=== PATIENT | female | born 1950 | race Caucasian/White ===

== ENCOUNTER 2016-05-21 13:38 | Observation (INO) | payer OTHER, MEDICARE ==
[~2016-05-21] VITALS: Ht 157.5 cm; Wt 85.0 kg
[~2016-05-21 13:38] MED LIST: ACET325T51 PO; ASPI-973 PO; CALC600T12 PO; CARV12.52 PO; CITA20TA11 PO; CYAN500 PO; ESTR1TAB24 PO; LISI-571 PO; OMEP20CA11 PO
[2016-05-21 13:40] VITALS: BP 114/53; PULSE 95; RESP 20; O2SAT 94
--- NOTE | 2016-05-21 15:28 | ED.REPORT ---
HPI-Chest Pain 40 and Over Date of Service May 21, 2016 ED Provider: Dr. Sarkar 66 year old female with a hx of HTN, broken heart syndrome, CAD S/p angioplasty and former smoker who presents to the ED due to SOB that has been worsening for the last 3 days. The dyspnea is worse with any exertion. For the last few days she has been unable to sleep in bed. She also complains of back pain, cough (8 days), and diarrhea. Pt was seen 1 year ago for broken heart syndrome and states that some symptoms are similar. Pt denies worsening edema, CP, fever, chills, vomiting and urinary symptoms. Nursing Notes Stated Complaint: SOB Chief Complaint: Chest Pain Nursing Notes Reviewed: Yes Allergies: Coded Allergies: Macrolide Antibiotics (Verified Allergy, Mild, 03/15/09) Penicillins (Verified Allergy, Mild, 03/15/09) erythromycin ethylsuccinate (Verified Allergy, Mild, 03/15/09) tetracycline (Verified Allergy, Mild, 03/15/09) aspirin (Verified Allergy, Unknown, 05/21/16) Scheduled Aspirin (Aspirin) 81 Mg Tabec 81 MG PO DAILY Calcium Carbonate (Calcium) 600 Mg Tablet 600 MG PO DAILY Carvedilol (Carvedilol) 12.5 Mg Tablet 12.5 MG PO BIDWM Citalopram (Citalopram) 20 Mg Tablet 1 TABLET PO HS Cyanocobalamin (Vitamin B12) 500 Mcg Tablet Unknown Dose PO MORNING Estradiol (Estradiol) 1 Mg Tablet 1 MG PO DAILY Lisinopril (Lisinopril) 5 Mg Tablet 1 TABLET PO QPM Lisinopril (Lisinopril) 5 Mg Tablet 5 MG PO BID Omeprazole (Omeprazole) 20 Mg Capsule. Unknown Dose PO BID Scheduled PRN Acetaminophen (Acetaminophen) 325 Mg Tablet 325 MG PO Q4H PRN PRN For Pain General Time Seen by MD: 15:28 Chief Complaint Shortness of breath Hx Obtained From: Patient, Spouse Arrived By: Walk-in Sudden in Onset?: No Onset Occurred: 3 days ago Symptom Duration: Since onset Location: : Back Quality: Painful Severity: Current: Mild Associated with: Reports: Cough, non-productive, Denies: Fever Exacerbated by: Exertion, mild, Lying down Risk Factors )( CAD Risk Stratification Risk factors reviewed )( TAD Risk Stratification Risk factors reviewed )( PE Risk Stratification Risk factors reviewed Past Medical History Past Medical History "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 Squires Reports: Coronary artery disease, GERD, Hypertension Reports: Depression, Urinary tract infection Past Surgical History abd hernia with mesh and bilateral eye surgery Reports: Angioplasty, Hysterectomy Smoking History Former Smoker Social History Alcohol Use: "Social" Drug Use: Denies drug use Other Social History: Occupation no work or school Review of Systems Basic Review of Systems Eyes: Vision NL ENT: Hearing NL : No dysuria, No frequency Constitutional: Denies: Chills, Fever Respiratory: Reports: Dyspnea on exertion, Non-productive cough, Shortness of breath Cardiovascular: Reports: Dyspnea on exertion, Edema (chronic, nothing worsening ), Denies: Chest pain GI: Reports: Diarrhea, Denies: Abdominal pain, Nausea, Vomiting Musculoskeletal: Reports: Back pain Skin: Denies Diaphoresis, Denies Rash Complete sys rev & neg: except as marked. Physical Exam Initial Vital Signs Vital Signs (First) Date Time Temp Pulse Resp B/P Pulse Ox O2 Delivery O2 Flow Rate FiO2 05/21/16 13:40 37.1 95 20 114/53 94 Room Air Initial VS: Reviewed, Vital signs normal Head / Eyes: Atraumatic, Normocephalic, PERRL ENT: Mucous membranes moist, Conjunctiva normal, No scleral icterus Neck: Supple, Full range of motion Extremities: Vascular intact, Neuro intact, No swelling (No edema) Skin: Warm, Dry, No cyanosis Neurologic: Alert, Oriented, Nonfocal Psychiatric: Mood/affect normal, Behavior normal, Normal thought content General/Constitutional: Awake, Alert Respiratory / Chest: Breath sounds NL, Breath sounds = bilat, No respiratory distress, No rales, No rhonchi, No wheezing, No stridor, No chest tenderness Cardiovascular: Heart rate NL, Regular rhythm, Heart sounds NL, No murmurs, Peripheral circulation NL, Pulses = bilaterally Abdomen: Soft, Non-tender Interpretation & Diagnostics Lab Results Interpretation Result Diagram: 05/21/16 1600 05/21/16 1600 Test 05/21/16 16:00 05/21/16 17:06 05/21/16 17:45 05/21/16 21:45 White Blood Count 14.5th/mm3 (3.8-10.1) Red Blood Count 3.36mil/mm3 (3.90-5.20) Hemoglobin 8.5g/dL (12.0-15.6) Hematocrit 29.5% (35.0-46.0) Mean Corpuscular Volume 87.8fL (81-100) Mean Corpuscular Hemoglobin 25.3pg (27.0-35.0) Mean Corpuscular Hemoglobin Concent 28.8% (32.0-37.0) Red Cell Distribution Width 14.5% (12.3-15.4) Platelet Count 390bil/L (150-400) Neutrophils (%) (Auto) 64.1% (40-74) Lymphocytes (%) (Auto) 23.5% (14-46) Monocytes (%) (Auto) 8.5% (4-12) Eosinophils (%) (Auto) 3.5% (0-5) Basophils (%) (Auto) 0.2% (0-3) Sodium Level 139mEq/L (134-144) Potassium Level 4.4mEq/L (3.5-5.2) Chloride Level 102mEq/L (97-108) Carbon Dioxide Level 26mmol/L (18-29) Blood Urea Nitrogen 13mg/dL (8-27) Creatinine 0.60mg/dL (0.57-1.00) Estimat Glomerular Filtration Rate 142mL/min (>59) Glucose Level 93mg/dL (60-99) Calcium Level 8.7mg/dL (8.5-10.1) Magnesium Level 1.8mg/dL (1.6-2.6) Total Bilirubin 0.2mg/dL (0.0-1.2) Aspartate Amino Transf (AST/SGOT) 14U/L (0-50) Alanine Aminotransferase (ALT/SGPT) 11U/L (0-32) Alkaline Phosphatase 88U/L (25-165) Troponin T < 0.010ug/L (0.0-0.011) Pro-B-Type Natriuretic Peptide 996.0pg/mL (0-301) Total Protein 6.8g/dL (6.4-8.4) Albumin 3.1g/dL (3.4-5.0) Urine Color Straw (YELLOW) Urine Appearance Clear (CLEAR,HAZY) Urine pH 6.0 (5.0-8.0) Urine Specific [place] 1.010 (1.003-1.035) Urine Protein Tracemg/dL (NEG,TRACE) Urine Glucose (UA) Negativemg/dL (NEGATIVE) Urine Ketones Negativemg/dL (NEGATIVE) Urine Occult Blood Negative (NEGATIVE) Urine Nitrite Negative (NEGATIVE) Urine Bilirubin Negative (NEGATIVE) Urine Urobilinogen Normalmg/dL (NORMAL) Urine Leukocyte Esterase Negative (NEGATIVE) Urine RBC 0-2/hpf (0-2) Urine WBC 0-5/hpf (0-5) Urine Epithelial Cells None/hpf (NONE-MOD) Urine Crystals Uric acid crystals (NONE Urine Bacteria None/hpf (NONE-FEW) Urine Hyaline Casts None/lpf (NONE) Urine Granular Casts None seen (NONE SEEN) Urine Waxy Casts None seen (NONE SEEN) Urine Red Blood Cell Casts None seen (NONE SEEN) Urine White Blood Cell Casts None seen (NONE SEEN) Urine Mucus None seen (None Seen) Urine Trichomonas None seen (NONE SEEN) Urine Yeast None (NONE SEEN) Urinalysis Comment None Urine Culture Reflexed Not indicated Reticulocyte Count,Calculated 3.1% (0.6-2.6) Iron Level 29ug/dL (35-150) Total Iron Binding Capacity 479ug/dL (250-450) Percent Iron Saturation 6%sat (15-50) Unsaturated Iron Binding 450.1ug/dL Ferritin 31ng/mL (13-150) Hold Purple Top Tube Received (Received) Hold Blue Top Tube Received (Received) Hold [place] Top Tube Received (Received) Hold Reyes Top Tube Received (Received) General Lab Results Interp 1: Labs reviewed ECG Interpretation ECG Interpretation: Increased QTc, no acute ST or T wave changes. Prior ST and T wave changes on prior ECG 04/16/15 have resolved Time: 14:18 Interpreted by: ED physician Abnormal Rate: 100 (105) Rhythm / Conduction: Tachycardia ABG Interpretation ABG Interpretation: pH ____7.379 - 7.350 7.450 pCO2 ___48.9__ -mmHg 35.0 45.0 pO2 ___59.0__ -mmHg 69.0 116 HCO3- ___28.2__ -mmol/L 22.0 26.0 X-Ray Chest Interpretation Chest Xray Interpretation: IMPRESSION: No acute cardiopulmonary disease. Dictated by: Marino Casey M.D. on 05/21/2016 at 15:30 View: Portable, 1 view Interpretation / Wet Read by: Interpret - Radiologist CT Chest Interpretation Impression: No pulmonary emboli identified. No aortic dissection evident. Findings suggest mild pulmonary edema associated with small pleural effusions. Hepatomegaly with fatty liver infiltration. Study type: CT pulm angiogram Interpretation / Wet Read by: Interpret - Radiologist Re-Eval/Medical Decision Med Decision/Clinical Course The patient's predominant complaint was significant dyspnea on exertion. Evaluation here revealed anemia which was thought to be a cause of her dyspnea. She is treated with 1 unit packed red cells and it did resolve her dyspnea however the patient was noted periodically be hypoxic. Given the hypoxia showed a CT angiogram which was negative for pulmonary embolus and pneumonia. The patient will need to be admitted due to the hypoxia. She had a blood gas obtained to confirm that she is truly hypoxic and it was consistent with hypoxia. The patient does have a remote history of smoking was given a breathing treatment with no significant change. Time of Eval: 17:11 Re-Evaluation/Progress Note: Pt slightly anemic. Pt understands and agrees with plan for rectal exam. Stool negative for blood. Time of Eval: 17:47 Patient Status: Condition improved Re-Evaluation/Progress Note: pt rechecked. Time of Eval: 20:13 Re-Evaluation/Progress Note: Blood is transfusing. Pt resting awake and alert in bed. Time of Eval: 20:52 Re-Evaluation/Progress Note: Pt is now hypoxic. Recommended admission. Pt understands and agrees with plan. All questions addressed. Consultation #1: Referral / Consult Name: Simone De La Rosa MD Consulted With: Bridge Instructor Call Returned at: 17:20 Note: Standard anemia studies. Will f/u. Agrees with plan for transfusing 1 unit. Consultation #2: Referral / Consult Name: Radha Parkinson MD Consulted With: Hospitalist Call Returned at: 23:43 Rn Security: Will see patient, Agrees with eval, Agrees with plan, Accepts admit Counseled Regarding: Diagnosis, Lab results, Need for admission Discharge & Departure Primary Impression: Hypoxia Additional Impression: Anemia Anemia type: unspecified type Qualified Code: D64.9 - Anemia, unspecified Disposition: ADMITTED TO HOSPITAL Discharge Condition All VS Reviewed: Yes Referrals: NOPCP (PCP) Scribe Attestation Portions of this note were transcribed by Janie Haq. I, (Dr. Sarkar) personally performed the history, physical exam and medical decision-making; I reviewed and confirmed the accuracy of the information in the transcribed note. Signed by: Janie Haq. 05/21/2016, 2342 Elvia Sarkar MD May 21, 2016 15:28 Janie Haq May 21, 2016 15:51
--- NOTE | 2016-05-21 15:32 | DRSVH ---
PROCEDURE: X-RAY CHEST ONE VIEW, PORTABLE ([id number]) INDICATIONS: 66 year-old female with chest pressure for 10 days. TECHNIQUE: One view of the chest was acquired. COMPARISON: [facility], CR, XR CHEST 2VW, 03/17/2016, 13:52. [facility], CR, XR CHEST 2VW, 05/23/2015, 11:03. [facility], CR, XR CHEST 1VW (PORTABLE), 04/20/2015, 3:13. FINDINGS: Surgical changes and devices: None. Lungs and pleura: No pleural effusions or pneumothorax. Lungs are clear. Mediastinum: Mediastinal contours appear normal. Heart size is normal. There is aortic atheroscler osis. Bones and chest wall: No suspicious bony lesions. Overlying soft tissues appear unremarkable. IMPRESSION: No acute cardiopulmonary disease. Dictated by: Marino Casey M.D. on 05/21/2016 at 15:30 Approved by: Marino Casey M.D. on 05/21/2016 at 15:30
[2016-05-21] MEDS ORDERED: Albuterol-Ipratropium 3 mL Inhalation Solution NEB ONE (15:55)
[2016-05-21 16:02] VITALS: PULSE 85; RESP 16; O2SAT 95
[2016-05-21 16:03] LABS: BASOPHILS % (AUTO) 0.2 % (0-3); EOSINOPHILS % (AUTO) 3.5 % (0-5); MONOCYTES % (AUTO) 8.5 % (4-12); Mean Corpuscular Hemoglobin 25.3 pg (27.0-35.0); Mean Corpuscular Volume 87.8 fL (81-100); NEUTROPHILS % (AUTO) 64.1 % (40-74); Platelet Count 390 bil/L (150-400)
[2016-05-21 16:47] LABS: Magnesium 1.8 mg/dL (1.6-2.6)
[2016-05-21 16:51] LABS: TROPONIN T < 0.010 ug/L (0.0-0.011)
[2016-05-21 17:35] LABS: APPEARANCE,URINE CLEAR (CLEAR,HAZY); COLOR,URINE STRAW (YELLOW); OCCULT BLOOD,URINE NEGATIVE (NEGATIVE); UROBILINOGEN,URINE NORMAL (NORMAL)
[2016-05-21 18:30] LABS: Unsaturated Iron Binding 450.1 ug/dL
[2016-05-21 18:44] VITALS: BP 149/55; PULSE 88; RESP 14; O2SAT 96
[2016-05-21 22:56] VITALS: BP 131/44; PULSE 87; RESP 13
[2016-05-21] MEDS ORDERED: Albuterol 2.5 mg/3 mL Inhalation Solution NEB ONE (23:15)
--- NOTE | 2016-05-21 23:22 | ABG ---
DateTimeAnalyzed 23:17:00 -_ pH ____7.379 - 7.350 7.450 pCO2 ___48.9__ -mmHg 35.0 45.0 pO2 ___59.0__ -mmHg 69.0 116 HCO3- ___28.2__ -mmol/L 22.0 26.0 ABE ____3.1__ -mmol/L -2.0 2.0 tHb ____9.3__ -g/dL O2Hb ___86.8__ -% COHb ____1.8__ -% MetHb ____1.3__ -% sO2 ___89.6__ -% FIO2 ___21.0__ -% Drawn By MM - Date/Time Notified____ 23:21:00 -_ Notified By MM - Notified Whom _DR KATJA - B 763 -mmHg tO2 ___11.5__ -Vol% OrderingPhysicianInitials JL - Deric test _Positive -
[2016-05-22] VITALS (9 sets, daily range): BP systolic 108–151; BP diastolic 49–80; PULSE 82–90; RESP 18–20; O2SAT 94–98
[2016-05-22] MEDS ORDERED: Lactated Ringer's 1,000 ML IV SCH (00:32)
[2016-05-22] MEDS ORDERED: Polyethylene Glycol (PEG) 17 Gm Powder PO PRN (00:35)
[2016-05-22] MEDS ORDERED: Ondansetron 2 mg/mL 2 mL Inj IVPUSH PRN ×2 (00:35)
[2016-05-22] MEDS ORDERED: Alum-Mag Hydrox-Simeth 30 mL Suspension PO PRN ×2 (00:35)
[2016-05-22 01:21] LABS: BASOPHILS % (AUTO) 0.3 % (0-3); EOSINOPHILS % (AUTO) 4.4 % (0-5); MONOCYTES % (AUTO) 8.4 % (4-12); Mean Corpuscular Hemoglobin 26.1 pg (27.0-35.0); Mean Corpuscular Volume 87.4 fL (81-100); NEUTROPHILS % (AUTO) 60.1 % (40-74); Platelet Count 384 bil/L (150-400)
[2016-05-22] MEDS: 0.9% Sodium Chloride 1,000 ML IV SCH ×2 (01:30→10:35)
[2016-05-22] MEDS ORDERED: CARV6.252 PO (01:47)
[2016-05-22 01:51] LABS: INR 0.92 ratio
--- NOTE | 2016-05-22 02:12 | PCM.HPMED ---
Subjective Date of Service May 22, 2016 Primary Provider: Admitting Physician: Radha Parkinson MD Primary Care Physician: Nopcp Attending Physician: Radha Parkinson MD Admit Status: From the Emergency Department, 23-Hour Observation, [facility] Telemetry Chief Complaint: Increasing shortness of breath over the past few days History of Present Illness: This is a 66-year-old female who has a history of hypertension history a year ago of Takotsubo cardiomyopathy who presents with increasing shortness of breath over the past few days. He notes it is worse with exertion. She denies any chest pain. Denies any lower extremity edema. Denies any fevers or chills. She does have a history of gastroesophageal reflux for which she uses omeprazole twice a day. She denies any alteration in bowel movements but does have more flatulence along with burping recently. Her evaluation in the emergency room includes a white count of 14.5 with 64% polys 24% lymphs. Troponin less than 0.010. CTA of chest was done and reveals no pulmonary emboli identified. No aortic dissection evidence of findings suggesting mild pulmonary edema associated with small pleural effusions noted hepatomegaly with fatty liver infiltration. She was also found to be anemic and was transfused blood per ER M.D. Information Technology Officer Dr. Simone De La Rosa was also consulted. She was heme-negative on rectal exam per ER M.D. Of note her percent iron saturation was 6%. Reticulocyte count was 3.1%. Her hemoglobin was 8.5 and hematocrit was 29.5 with an MCV of 87.8. Platelets were 398. Review of Systems: All other review of systems were reviewed and were negative except for as in history of present illness. Allergies Coded Allergies: Macrolide Antibiotics (Verified Allergy, Mild, 03/15/09) Penicillins (Verified Allergy, Mild, 03/15/09) erythromycin ethylsuccinate (Verified Allergy, Mild, 03/15/09) tetracycline (Verified Allergy, Mild, 03/15/09) aspirin (Verified Allergy, Unknown, 05/21/16) Home Medications Scheduled Aspirin (Aspirin) 81 Mg Tabec 81 MG PO DAILY Calcium Carbonate (Calcium) 600 Mg Tablet 600 MG PO DAILY Carvedilol (Carvedilol) 12.5 Mg Tablet 12.5 MG PO BIDWM Citalopram (Citalopram) 20 Mg Tablet 1 TABLET PO HS Cyanocobalamin (Vitamin B12) 500 Mcg Tablet Unknown Dose PO MORNING Estradiol (Estradiol) 1 Mg Tablet 1 MG PO DAILY Lisinopril (Lisinopril) 5 Mg Tablet 1 TABLET PO QPM Lisinopril (Lisinopril) 5 Mg Tablet 5 MG PO BID Omeprazole (Omeprazole) 20 Mg Capsule.dr Unknown Dose PO BID Scheduled PRN Acetaminophen (Acetaminophen) 325 Mg Tablet 325 MG PO Q4H PRN PRN For Pain PMH History of chronic recurrent major depressive disorder History of stress induced cardiomyopathy Hyperlipidemia Essential hypertension History of GERD Apical ballooning syndrome Hyperglycemia Benign essential hypertension History of smoking Surgical History Past Surgical History abd hernia with mesh and bilateral eye surgery Reports: Angioplasty, Hysterectomy Social History Hx Alcohol Use: No Hx Substance Use: No Hx Tobacco Use: No Smoking Status: Former Smoker Living Arrangement: with Family Exam Vital Signs Vital Sign - Last Date Time Temp Pulse Resp B/P Pulse Ox O2 Delivery O2 Flow Rate FiO2 05/22/16 01:37 36.5 87 18 151/73 97 Nasal Cannula 2.00 Intake and Output 05/21/16 05/21/16 05/22/16 Cumulative From/Thru 15:00 23:00 07:00 05/21/16 13:40 - 05/22/16 01:37 Intake Total 350 ml 350 ml Balance 350 ml 350 ml Intake IV Total 350 ml 350 ml Exam Constitutional: Middle-aged woman in no acute distress Head: Normocephalic atraumatic Eyes: PERRLA DC EOMI Mouth: No lesions Neck: Carotids 2+ over 4 without bruits Chest clear to auscultation Cor: Regular rate and rhythm S1-S2 without murmur Abdomen soft, nontender, bowel sounds present Extremities: No pedal edema Psych: Mood and affect are appropriate Skin: No rashes Neuro: Alert and oriented 3, motor and sensory are intact bilaterally Lab and Diagnostics Labs Laboratory Tests 72 Hours Test 05/21/16 16:00 05/21/16 17:06 05/21/16 17:45 05/21/16 21:45 White Blood Count 14.5th/mm3 (3.8-10.1) Red Blood Count 3.36mil/mm3 (3.90-5.20) Hemoglobin 8.5g/dL (12.0-15.6) Hematocrit 29.5% (35.0-46.0) Mean Corpuscular Volume 87.8fL (81-100) Mean Corpuscular Hemoglobin 25.3pg (27.0-35.0) Mean Corpuscular Hemoglobin Concent 28.8% (32.0-37.0) Red Cell Distribution Width 14.5% (12.3-15.4) Platelet Count 390bil/L (150-400) Neutrophils (%) (Auto) 64.1% (40-74) Lymphocytes (%) (Auto) 23.5% (14-46) Monocytes (%) (Auto) 8.5% (4-12) Eosinophils (%) (Auto) 3.5% (0-5) Basophils (%) (Auto) 0.2% (0-3) Sodium Level 139mEq/L (134-144) Potassium Level 4.4mEq/L (3.5-5.2) Chloride Level 102mEq/L (97-108) Carbon Dioxide Level 26mmol/L (18-29) Blood Urea Nitrogen 13mg/dL (8-27) Creatinine 0.60mg/dL (0.57-1.00) Estimat Glomerular Filtration Rate 142mL/min (>59) Glucose Level 93mg/dL (60-99) Calcium Level 8.7mg/dL (8.5-10.1) Magnesium Level 1.8mg/dL (1.6-2.6) Total Bilirubin 0.2mg/dL (0.0-1.2) Aspartate Amino Transf (AST/SGOT) 14U/L (0-50) Alanine Aminotransferase (ALT/SGPT) 11U/L (0-32) Alkaline Phosphatase 88U/L (25-165) Troponin T < 0.010ug/L (0.0-0.011) Pro-B-Type Natriuretic Peptide 996.0pg/mL (0-301) Total Protein 6.8g/dL (6.4-8.4) Albumin 3.1g/dL (3.4-5.0) Urine Color Straw (YELLOW) Urine Appearance Clear (CLEAR,HAZY) Urine pH 6.0 (5.0-8.0) Urine Specific [place] 1.010 (1.003-1.035) Urine Protein Tracemg/dL (NEG,TRACE) Urine Glucose (UA) Negativemg/dL (NEGATIVE) Urine Ketones Negativemg/dL (NEGATIVE) Urine Occult Blood Negative (NEGATIVE) Urine Nitrite Negative (NEGATIVE) Urine Bilirubin Negative (NEGATIVE) Urine Urobilinogen Normalmg/dL (NORMAL) Urine Leukocyte Esterase Negative (NEGATIVE) Urine RBC 0-2/hpf (0-2) Urine WBC 0-5/hpf (0-5) Urine Epithelial Cells None/hpf (NONE-MOD) Urine Crystals Uric acid crystals (NONE Urine Bacteria None/hpf (NONE-FEW) Urine Hyaline Casts None/lpf (NONE) Urine Granular Casts None seen (NONE SEEN) Urine Waxy Casts None seen (NONE SEEN) Urine Red Blood Cell Casts None seen (NONE SEEN) Urine White Blood Cell Casts None seen (NONE SEEN) Urine Mucus None seen (None Seen) Urine Trichomonas None seen (NONE SEEN) Urine Yeast None (NONE SEEN) Urinalysis Comment None Urine Culture Reflexed Not indicated Reticulocyte Count,Calculated 3.1% (0.6-2.6) Iron Level 29ug/dL (35-150) Total Iron Binding Capacity 479ug/dL (250-450) Percent Iron Saturation 6%sat (15-50) Unsaturated Iron Binding 450.1ug/dL Ferritin 31ng/mL (13-150) Hold Purple Top Tube Received (Received) Hold Blue Top Tube Received (Received) Hold [place] Top Tube Received (Received) Hold Reyes Top Tube Received (Received) Test 05/22/16 01:10 White Blood Count 12.4th/mm3 (3.8-10.1) Red Blood Count 3.64mil/mm3 (3.90-5.20) Hemoglobin 9.5g/dL (12.0-15.6) Hematocrit 31.8% (35.0-46.0) Mean Corpuscular Volume 87.4fL (81-100) Mean Corpuscular Hemoglobin 26.1pg (27.0-35.0) Mean Corpuscular Hemoglobin Concent 29.9% (32.0-37.0) Red Cell Distribution Width 14.8% (12.3-15.4) Platelet Count 384bil/L (150-400) Neutrophils (%) (Auto) 60.1% (40-74) Lymphocytes (%) (Auto) 26.6% (14-46) Monocytes (%) (Auto) 8.4% (4-12) Eosinophils (%) (Auto) 4.4% (0-5) Basophils (%) (Auto) 0.3% (0-3) Activated Partial Thromboplast Time 25.4sec (22.8-33.0) Result Diagram: 05/22/16 0110 05/21/16 1600 X-Rays, CTs and MRIs Patient Name: CATA CAMERON MR#: [id number] Location: [facility] [place] Ordering Phys: [facility], ED Date of Service: 05/21/16 1449 PROCEDURE: X-RAY CHEST ONE VIEW, PORTABLE ([id number]) INDICATIONS: 66 year-old female with chest pressure for 10 days. TECHNIQUE: One view of the chest was acquired. COMPARISON: [facility], CR, XR CHEST 2VW, 03/17/2016, 13:52. [facility], CR, XR CHEST 2VW, 05/23/2015, 11:03. [facility], CR, XR CHEST 1VW (PORTABLE), 04/20/2015, 3:13. FINDINGS: Surgical changes and devices: None. Lungs and pleura: No pleural effusions or pneumothorax. Lungs are clear. Mediastinum: Mediastinal contours appear normal. Heart size is normal. There is aortic atherosclerosis. Bones and chest wall: No suspicious bony lesions. Overlying soft tissues appear unremarkable. IMPRESSION: No acute cardiopulmonary disease. Dictated by: Marino Casey M.D. on 05/21/2016 at 15:30 Approved by: Marino Casey M.D. on 05/21/2016 at 15:30 12-lead ECG Sinus at a rate of 105 QTC is 488 poor R-wave progression across precordium Additional Diagnostics: [facility] CATA CAMERON 1950 Female DateTimeAnalyzed 23:17:00 -_ pH ____7.379 - 7.350 7.450 pCO2 ___48.9__ -mmHg 35.0 45.0 pO2 ___59.0__ -mmHg 69.0 116 HCO3- ___28.2__ -mmol/L 22.0 26.0 ABE ____3.1__ -mmol/L -2.0 2.0 tHb ____9.3__ -g/dL O2Hb ___86.8__ -% COHb ____1.8__ -% MetHb ____1.3__ -% sO2 ___89.6__ -% FIO2 ___21.0__ -% Drawn By MM - Date/Time Notified____ 23:21:00 -_ Notified By MM - Notified Whom _DR KATJA - B 763 -mmHg tO2 ___11.5__ -Vol% OrderingPhysicianInitials JL - Deric test _Positive - Assessment & Plan # Dyspnea on exertion with resting hypoxia, acute, present on admission Check echocardiogram Serial troponins CTA revealed no pulmonary emboli Check stress pharmacological nuclear test # Chronic recurrent major depressive disorder, chronic, present on admission continue current medication regimen #Benign essential hypertension, chronic, present on admission Continue current medication regimen # DVT prophylaxis Placed on subcutaneous prophylactic heparin # CODE STATUS Patient is full code Pain Evaluation: Adequate Pain Control GI Prophylaxis: Proton Pump Inhibitor VTE Prophylaxis: Sub-Q Heparin (Unfractionated) VTE Mechanical Devices: Intermittant Pneumatic CD Resuscitation Status: CPR: Attempt Resuscitation Time spent 60 minutes Rdaha Parkinson MD May 22, 2016 02:12
[2016-05-22 02:13] LABS: Magnesium 1.9 mg/dL (1.6-2.6)
[2016-05-22 02:14] LABS: TROPONIN T 0.01 ug/L (0.0-0.011)
[2016-05-22 03:15] LABS: APPEARANCE,URINE HAZY (CLEAR,HAZY); COLOR,URINE STRAW (YELLOW); OCCULT BLOOD,URINE TRACE (NEGATIVE); PH,URINE 6.5 (5.0-8.0); UROBILINOGEN,URINE NORMAL (NORMAL)
--- NOTE | 2016-05-22 03:31 | NUR ---
Admit to 1009 Arrived from ED at 0115, ambulated to bed with steady gait. Pt reports recent fall unrelated to dizziness or SOB. IV fluids infusing, tele monitoring and cont pulse ox with 3 L O2 via NC. NPO for stress test in am. Received RBCs in ED. Oriented to room, call light, hospital routines, hourly rounding ongoing.
[2016-05-22 06:08] LABS: Vitamin B12 >1999 pg/mL (211-946)
--- NOTE | 2016-05-22 08:00 | NUR ---
TRANSFER TO NUCLEAR [facility] Patient is saline locked. Transferred to nuclear [employer] for her stress test. She denies pain/nausea/SOB at this time.
[2016-05-22] MEDS ORDERED: Influenza (Adult) Vaccine 0.5 mL Syringe IM ONE (08:30)
--- NOTE | 2016-05-22 09:04 | DRSVH ---
PROCEDURE: CT ANGIO CHEST PULMONARY EMBOLISM ([id number]) INDICATIONS: hypoxia TECHNIQUE: After the administration of intravenous contrast, 2 mm thick sections acquired from the pulmonary api jaye to the posterior costophrenic angles. 3-dimensional maximum intensity projection (MIP) coronal a nd sagittal reformats were then acquired through the thorax. For radiation dose reduction, the follo wing was used: automated exposure control, adjustment of mA and/or kV according to patient size. COMPARISON: [facility], CT, CT CHEST WO CON, 06/08/2015, 12:46. [facility], CT, CHEST ANGIO-PE, 07/03/2009, 17:09. [facility], CT, CT ANGIO CHEST PE, 04/14/2015, 17: 12. FINDINGS: Image quality: Excellent. Pulmonary arteries: Pulmonary arteries are normal in size, and demonstrate no intraluminal filling d efects to suggest central pulmonary embolism. Lungs and pleura: There are small bilateral pleural effusions with mild compressive atelectasis. The re is mild septal thickening with bilateral ground glass opacities consistent with pulmonary edema. B ilateral scattered small subpleural ground-glass nodules on the order of 3-4 mm are demonstrated like ly representing mild infectious or inflammatory process. Central and peripheral airways are patent. Mediastinum: Heart size is normal, without pericardial effusion. There are a few mildly enlarged me diastinal and hilar lymph nodes including confluent subcarinal nodes measuring up to approximately 1. 1 cm in short axis. These are slightly increased compared to the prior studies. Thoracic aorta is n ormal in caliber and enhancement. Esophagus is normal in caliber, without hiatal hernia. Bones and chest wall: No suspicious bony lesions. Ribs and thoracic spine appear intact throughout. Thyroid gland is partially visualized and demonstrates no discrete nodules. No axillary or supracl avicular adenopathy. Abdomen: Visualized upper abdomen redemonstrates 2 clustered peripherally calcified ovoid hypoattenu ating nodules in the spleen measuring up to approximately 1.2 cm and 1 cm. These are similar in size compared to the prior studies with increased peripheral calcification demonstrated in the larger les ion over time. IMPRESSION: 1. No evidence of central pulmonary embolism. 2. Septal thickening and groundglass opacities consistent with pulmonary edema which may be due to c ardiogenic or noncardiogenic etiologies. 3. Small bilateral pleural effusions. 4. Scattered small subpleural groundglass nodules likely represent a mild infectious or inflammatory process. 5. Mildly enlarged mediastinal and hilar lymph nodes are progressively slightly increased in size co mpared to the prior studies. Findings are nonspecific but likely reactive. Recommend attention on f ollowup. 6. 2 peripherally calcified lesions redemonstrated in the spleen are nonspecific but likely related to sequela of prior infection. Dictated by: Zeke Zelaya M.D. on 05/22/2016 at 9:02 Approved by: Zeke Zelaya M.D. on 05/22/2016 at 9:02
[2016-05-22] MEDS: Famotidine Inj 20 MG in IV Premix 1 EACH IV SCH ×2 (10:55→19:47)
--- NOTE | 2016-05-22 11:08 | NUR ---
BACK FROM NUCLEAR MED Patient is on O2 at 2 LPM via NC. Patient is placed back on a continuous PO2. Restarted IVF. Patient denies pain/nausea/SOB. Tele is back. Patient is on sinus rhythm; HR-80's. Per nuclear med patient can restart her diet. Family is at the bedside. Reoriented to room, call light and bathroom.
--- NOTE | 2016-05-22 12:01 | DRSVH ---
PROCEDURE: 1 DAY PHARMACOLOGICAL STRESS TEST INDICATIONS: THE PATIENT IS A 66-YEAR-OLD FEMALE ADMITTED WITH SYMPTOMS OF EXERTIONAL DYSPNEA, HYPOX IA AND ANEMIA. NUCLEAR CARDIAC STRESS STUDY IS PERFORMED TO EXCLUDE UNDERLYING ISCHEMIC HEART DISEAS E. COMPARISON: None. FINDINGS: Stress test: For unclear reasons this patient underwent a pharmacologic stress study. O2 saturation on room air 88% and with 2 L nasal cannula 97% at the time of the study. The patient received a sta ndard Lexiscan injection which was associated with a normal pharmacologic response and symptoms of dy spnea without chest pain or EKG changes of ischemia. The patient received 9.92 millicuries of Technetium-99m tetrofosmin for the resting portion of the ex amination and 32.7 millicuries following the Lexiscan pharmacologic stress study. Prone imaging was acquired. Raw data: Raw data imaging shows normal heart size with no evidence of transient ischemic dilatation . There is moderate breast tissue shadow identified. No significant source of artifact or interfere nce identified. Quantitative gated SPECT imaging: Gated images show a normal end-diastolic volume of 78 cc with an e jection fraction estimated at 73%. No regional wall motion abnormalities are identified. Quantitative perfusion SPECT imaging: Myocardial perfusion imaging shows a normal distribution of ra dioisotope throughout the myocardium both with stress and rest. There is a small focal distal apical region of hypoperfusion on stress and rest imaging which resolves with prone imaging and is consiste nt with breast tissue attenuation. I do not see any perfusion abnormalities that would suggest ische flower or scar. IMPRESSION: 1. Nuclear cardiac stress study appears normal and suggests the low likelihood for the presence of si gnificant underlying obstructive coronary artery disease. Dictated by: Colten Ruth M.D. on 05/22/2016 at 11:43 Transcribed by: SHERYL on 05/22/2016 at 15:00 Approved by: Colten Ruth M.D. on 06/09/2016 at 12:16
--- NOTE | 2016-05-22 16:24 | PCM.PNMED ---
Subjective Date of Service May 22, 2016 Subjective She is still on 2 L of oxygen. She does not use home O2. Feels better overall. Stress test is reported to me as negative. Patient denies any current chest pain, nausea vomiting, diarrhea or constipation. Exam Vital Signs Vital Sign - Last Date Time Temp Pulse Resp B/P Pulse Ox O2 Delivery O2 Flow Rate FiO2 05/22/16 11:08 Supplement Oxygen 05/22/16 11:08 36.4 85 18 121/49 98 2.00 Intake and Output 05/21/16 05/21/16 05/22/16 Cumulative From/Thru 15:00 23:00 07:00 05/21/16 13:40 - 05/22/16 06:17 Intake Total 350 ml 350 ml Output Total 100 ml 100 ml Balance 250 ml 250 ml Intake Oral 0 ml 0 ml IV Total 350 ml 350 ml Output Urine Total 100 ml 100 ml # Bowel Movements 0 0 Exam General: Alert, Oriented X3, NAD Head: Normocephalic, atraumatic Eyes: AFUA, EOMI, no scleral Icterus Chest: Right lower lobe crackles, otherwise clear Heart: Regular rate and rhythm. Normal S1, S2, no murmurs noted Abdomen: soft, non-tender. Bowel sounds are normoactive. No guarding or rebound. Extremities: no cyanosis, clubbing or edema. IVs and Medications Medications Reviewed: Medications were reviewed in detail Lab and Diagnostics Result Diagram: 05/22/16 0110 05/22/16 0110 X-Rays, CTs and MRIs Patient Name: CATA CAMERON MR#: [id number] Location: [facility] [place] Ordering Phys: POWER, ED Date of Service: 05/21/16 1449 PROCEDURE: X-RAY CHEST ONE VIEW, PORTABLE ([id number]) INDICATIONS: 66 year-old female with chest pressure for 10 days. TECHNIQUE: One view of the chest was acquired. COMPARISON: [facility], CR, XR CHEST 2VW, 03/17/2016, 13:52. [facility], CR, XR CHEST 2VW, 05/23/2015, 11:03. [facility], CR, XR CHEST 1VW (PORTABLE), 04/20/2015, 3:13. FINDINGS: Surgical changes and devices: None. Lungs and pleura: No pleural effusions or pneumothorax. Lungs are clear. Mediastinum: Mediastinal contours appear normal. Heart size is normal. There is aortic atherosclerosis. Bones and chest wall: No suspicious bony lesions. Overlying soft tissues appear unremarkable. IMPRESSION: No acute cardiopulmonary disease. Dictated by: Marino Casey M.D. on 05/21/2016 at 15:30 Approved by: Marino Casey M.D. on 05/21/2016 at 15:30 12-lead ECG Sinus at a rate of 105 QTC is 488 poor R-wave progression across precordium Additional Diagnostics [facility] CATA CAMERON 1950 Female DateTimeAnalyzed 23:17:00 -_ pH ____7.379 - 7.350 7.450 pCO2 ___48.9__ -mmHg 35.0 45.0 pO2 ___59.0__ -mmHg 69.0 116 HCO3- ___28.2__ -mmol/L 22.0 26.0 ABE ____3.1__ -mmol/L -2.0 2.0 tHb ____9.3__ -g/dL O2Hb ___86.8__ -% COHb ____1.8__ -% MetHb ____1.3__ -% sO2 ___89.6__ -% FIO2 ___21.0__ -% Drawn By MM - Date/Time Notified____ 23:21:00 -_ Notified By MM - Notified Whom _DR KATJA - B 763 -mmHg tO2 ___11.5__ -Vol% OrderingPhysicianInitials JL - Deric test _Positive - Assessment & Plan This is a 66-year-old female who has a history of hypertension history a year ago of Takotsubo cardiomyopathy who presents with increasing shortness of breath over the past few days. Nuclear stress test, found to be negative. She has had 1 unit of red blood cells transfused. Oncology consultation. She was heme-negative on rectal exam. # Dyspnea on exertion with resting hypoxia, acute, present on admission -Pending echocardiogram -CTA revealed no pulmonary emboli -Negative stress pharmacological nuclear test # Anemia: -Unknown etiology -She has received 1 unit red blood cells. -Follow levels. Hemoglobin 8.5 on admission -Deferred to hematology # Chronic recurrent major depressive disorder, chronic, present on admission -continue current medication regimen #Benign essential hypertension, chronic, present on admission -Continue current medication regimen # DVT prophylaxis -Placed on subcutaneous prophylactic heparin CODE STATUS: Patient is full code DVT prophylaxis: Contraindicated with anemia of unknown origin Disposition: Pending hospital course GI Prophylaxis: Proton Pump Inhibitor VTE Prophylaxis: Sub-Q Heparin (Unfractionated) VTE Mechanical Devices: Intermittant Pneumatic CD Resuscitation Status: CPR: Attempt Resuscitation Rolf Haq DO May 22, 2016 15:36
--- NOTE | 2016-05-22 16:57 | NUR ---
spiritual care: pt request brief introductory visit. pt described weariness; in room, supportive.
--- NOTE | 2016-05-22 19:11 | NUR ---
ACTIVITY Patient denies pain. Tolerating liquids PO and her diet well. Denies nausea. No emesis noted. She is on O2 at 2 LPM via NC at this time. Denies SOB. Ambulating with SBA in the room. Tolerating activity well. Voiding without any problems. *ECHO to be done in the AM. is aware of this.
[2016-05-23 00:33] VITALS: BP 151/60; PULSE 85; RESP 18; O2SAT 96
[2016-05-23 00:33] LABS: BASOPHILS % (AUTO) 0.4 % (0-3); EOSINOPHILS % (AUTO) 6.3 % (0-5); MONOCYTES % (AUTO) 8.5 % (4-12); Mean Corpuscular Hemoglobin 26.1 pg (27.0-35.0); Mean Corpuscular Volume 88.8 fL (81-100); Platelet Count 391 bil/L (150-400)
--- NOTE | 2016-05-23 03:30 | NUR ---
Activity Pt continues on 2L O2 via NC overnight. Denies pain/nausea. paged at beginning of shift to restart home medications, which was done. Pt able to sleep intermittently without complaints.
[2016-05-23 04:14] VITALS: BP 148/75; PULSE 82; RESP 19; O2SAT 97
[2016-05-23] MEDS: Famotidine Inj 20 MG in IV Premix 1 EACH IV SCH (07:38)
[2016-05-23 10:10] VITALS: PULSE 82
[2016-05-23 10:59] VITALS: BP 130/65; PULSE 82; RESP 20; O2SAT 95
--- NOTE | 2016-05-23 13:10 | DRSVH ---
[facility] [address] [place] [address] Echocardiogram Report Name: CATA CAMERON MStudy Date: 05/23/2016 He ight: 60 in Hospital Exam Location: [facility] We ight: 187 lb Gender: Female BS A: 1.9 m2 : 1950 Age: 66 yrs BP : 148/75 mmHg Reason For Study: Dyspnea Ordering Physician: HOSPITALIST [facility] Performed By: Ruby López Referring Physician: Gopal Bae Interpretation Summary The left ventricle is normal in size, wall thickness, and systolic function without any focal wall motion abnormalities. The ejection fraction is estimated to be 60-65%. LVEF continues to improve since prior study. The right ventricular cavity is small. The right ventricular systolic function is normal. The right ventricular systolic pressure is estimated at least 26 mmHg assuming a right atrial pressure of 3 mm Hg. Both atria are normal in size. There is no significant valvular heart disease. The aortic root is normal size. Procedure: A two-dimensional transthoracic echocardiogram with color flow and Doppler was performed. The study quality was technically adequate. Comparison is made with the echocardiogram of 06/14/2015. A contrast injection of Definity was performed to improve assessment of LV function. The patient was in normal sinus rhythm during the exam. Left Ventricle: The left ventricle is normal in size, wall thickness, and systolic function without any focal wall motion abnormalities. The ejection fraction is estimated to be 60-65%. Assessment of diastolic parameters indicates normal left ventricular diastolic function and normal filling pressures. Right Ventricle: The right ventricular cavity is small. The right ventricular systolic function is normal. Atria: Both atria are normal in size. The interatrial septum is intact with no evidence for an atrial septal defect. There is no Doppler evidence for an interatrial shunt. Mitral Valve: The mitral valve leaflets appear borderline thickened, but open well. There is trace mitral regurgitation. Aortic Valve: The aortic valve is trileaflet. The aortic valve opens well. No aortic regurgitation is present. Tricuspid Valve: The tricuspid valve is normal. There is a trace or physiologic amount of tricuspid regurgitation. The right ventricular systolic pressure is estimated at least 26 mmHg assuming a right atrial pressure of 3 mm Hg. Pulmonic Valve: The pulmonic valve is not well seen, but is grossly normal. There is no significant valvular heart disease. Great Vessels: The aortic root is normal size. The ascending aorta is normal in size. The aortic arch could not be visualized. The IVC is of normal diameter and collapses greater than 50% with a sniff. This suggests a low right atrial pressure of 3 mm Hg. Pericardium/ Pleura There is no pericardial effusion. MMode/2D Measurements & Calculations LVIDd: 5.0 cm RA long axis LVOT diam LVIDs: 3.0 cm LA A2 area: 18.2 cm FS: 40.3 % LA A4 area: 16.0 cm RA area AoV Opening EPSS: 0.64 cm LA length (vol): 5.1 cm IVSd: 0.96 cm LA vol: 48.1 ml : 11.4 cm Ao root diam LVPWd: 0.94 cm LA vol index RA vol : 25.7 ml asc Aorta RA Diam: 2.6 cm IVC diam: 1.9 cm : 13.8 mm/ RVDd minor : 2.0 cm LV johnson. diameter/BSA LV sys. diameter/BSA (cm/m^2): 2.7 (cm/m^2): 1.6 Doppler Measurements & Calculations Ao V2 max MV E max bud MV E/A: 0.93 TR max bud : 184.8 cm/sec : 102.5 cm/sec Med Peak E' Bud : 238.2 cm/sec Ao max PG MV A max bud TR max PG : 13.7 mmHg : 110.5 cm/sec E/E' med: 16.8 : 22.7 mmHg Ao mean PG MV P1/2t: 47.0 msec Pulm A Revs Dur PA V2 max : 101.3 cm/sec LVOT Max Bud MV A dur: 0.09 sec PA mean PG : 82.7 cm/sec AMANDA(I,D): 1.1 cm PA Accel Time sev ratio : 0.11 sec MV dec time MV P1/2t max bud Ao V2 mean LV V1 max PG : 0.16 sec : 126.4 cm/sec Ao V2 VTI: 40.6 cm LV V1 VTI MVA(P1/2t): 4.7 cm2 : 16.2 cm AMANDA(V,D): 1.3 cm2 PA V2 mean AMANDA indexed to BSA Pulm A Revs Dur - MV : 69.0 cm/sec (cm^2/m^2): 0.61 A Dur: 0.03 msec Reading Physician:PM
[2016-05-23] MEDS ORDERED: ASCO500C6 PO (14:26)
[2016-05-23] MEDS ORDERED: FERR324T2 PO (14:26)
--- NOTE | 2016-05-23 14:28 | PCM.DIMED ---
Discharge Instructions Date of Service May 23, 2016 Dates of Hospitalization May 22, 2016 at 00:33 Discharge Diagnosis Discharge Diagnosis Respiratory failure-multifactorial, possibly viral-improved Anemia-multifactorial, iron deficiency-iron replacement therapy Medication Instructions Take iron and vitamin C together with the meal Diet No restrictions Activity Limited until seen by PCP Call your provider Fever or Chills, Shortness of breath, Chest pain, Weakness (unilateral) Patient Instructions Follow-up plan Follow-up with GI for consideration of colonoscopy in 1-3 weeks Follow-up with PCP in: 1 week Rolf Haq DO May 23, 2016 14:28
--- NOTE | 2016-05-23 15:01 | NUR ---
DISCHARGE Patient's O2 sats were 87-87% on 1 LPM O2 at start of shift. Turned off O2 and sats stayed around 95, remained on CPOX. No complaints of chest pain or SOB. Reviewed discharge paperwork with patient, including Rx for 2 new medications, iron and vitamin C. Explained to patient to take these medications together for better iron absorption. Patient verbalized understanding. Removed patient from telemetry and removed saline lock IV's from Left AC and Right forearm, catheters intact. Patient got dressed independently and transferred into wheelchair. Taken outside and left in person vehicle with .
--- NOTE | 2016-05-23 19:36 | PCM.DC.MED ---
Discharge Summary Date of Service May 23, 2016 Dates of Hospitalization Date of Hospital Admission May 22, 2016 at 00:33 Date of Discharge: May 23, 2016 Providers: Admitting Physician: Radha Parkinson MD Primary Care Physician: Nopwindy Attending Physician: Radha Parkinson MD Diagnosis at Time of Discharge Diagnosis at Time of Discharge Respiratory failure-multifactorial, possibly viral-improved Anemia-multifactorial, iron deficiency-iron replacement therapy Procedures XRay, CTs & MRIs Patient Name: CATA CAMERON MR#: [id number] [place] [facility] [place]ing Phys: XANDER STEVE MD Date of Service: 05/21/16 1449 PROCEDURE: X-RAY CHEST ONE VIEW, PORTABLE ([id number]) INDICATIONS: 66 year-old female with chest pressure for 10 days. TECHNIQUE: One view of the chest was acquired. COMPARISON: [facility], CR, XR CHEST 2VW, 03/17/2016, 13:52. [facility], CR, XR CHEST 2VW, 05/23/2015, 11:03. [facility], CR, XR CHEST 1VW (PORTABLE), 04/20/2015, 3:13. FINDINGS: Surgical changes and devices: None. Lungs and pleura: No pleural effusions or pneumothorax. Lungs are clear. Mediastinum: Mediastinal contours appear normal. Heart size is normal. There is aortic atherosclerosis. Bones and chest wall: No suspicious bony lesions. Overlying soft tissues appear unremarkable. IMPRESSION: No acute cardiopulmonary disease. Dictated by: Marino Casey M.D. on 05/21/2016 at 15:30 Approved by: Marino Casey M.D. on 05/21/2016 at 15:30 ECG 12 Lead Sinus at a rate of 105 QTC is 488 poor R-wave progression across precordium Cardiac Echo Impression Echocardiogram 05/23/2016 Interpretation Summary The left ventricle is normal in size, wall thickness, and systolic function without any focal wall motion abnormalities. The ejection fraction is estimated to be 60-65%. LVEF continues to improve since prior study. The right ventricular cavity is small. The right ventricular systolic function is normal. The right ventricular systolic pressure is estimated at least 26 mmHg assuming a right atrial pressure of 3 mm Hg. Both atria are normal in size. There is no significant valvular heart disease. The aortic root is normal size. Other Diagnostics [facility] CATA CAMERON 1950 Female DateTimeAnalyzed 23:17:00 -_ pH ____7.379 - 7.350 7.450 pCO2 ___48.9__ -mmHg 35.0 45.0 pO2 ___59.0__ -mmHg 69.0 116 HCO3- ___28.2__ -mmol/L 22.0 26.0 ABE ____3.1__ -mmol/L -2.0 2.0 tHb ____9.3__ -g/dL O2Hb ___86.8__ -% COHb ____1.8__ -% MetHb ____1.3__ -% sO2 ___89.6__ -% FIO2 ___21.0__ -% Drawn By MM - Date/Time Notified____ 23:21:00 -_ Notified By MM - Notified Whom _DR KATJA - B 763 -mmHg tO2 ___11.5__ -Vol% OrderingPhysicianInitials JL - Deric test _Positive - Brief History This is a 66-year-old female who has a history of hypertension history a year ago of Takotsubo cardiomyopathy who presents with increasing shortness of breath over the past few days. He notes it is worse with exertion. She denies any chest pain. Denies any lower extremity edema. Denies any fevers or chills. She does have a history of gastroesophageal reflux for which she uses omeprazole twice a day. She denies any alteration in bowel movements but does have more flatulence along with burping recently. Her evaluation in the emergency room includes a white count of 14.5 with 64% polys 24% lymphs. Troponin less than 0.010. CTA of chest was done and reveals no pulmonary emboli identified. No aortic dissection evidence of findings suggesting mild pulmonary edema associated with small pleural effusions noted hepatomegaly with fatty liver infiltration. She was also found to be anemic and was transfused blood per ER M.D. Medical Billing And Coding Specialist Dr. Simone De La Rosa was also consulted. She was heme-negative on rectal exam per ER M.D. Of note her percent iron saturation was 6%. Reticulocyte count was 3.1%. Her hemoglobin was 8.5 and hematocrit was 29.5 with an MCV of 87.8. Platelets were 398. Hospital Course This is a 66-year-old female who has a history of hypertension history a year ago of Takotsubo cardiomyopathy who presents with increasing shortness of breath over the past few days. Nuclear stress test, found to be negative. She has had 1 unit of red blood cells transfused. She was heme-negative on rectal exam. She did improve through her hospital stay. Echo was done showing an ejection fraction which is improved to 60-65% EF, no valvular disease. On the day of discharge she was able to maintain her oxygen saturation was off supplemental oxygen. Iron studies showed she was deficient in iron. Iron was started at discharge. Unknown if she has other sources of bleeding. I did recommend follow-up with GI for colonoscopy as she has been about 10 years out since her last one. She was discharged home in stable condition and instructed to follow-up as above as well as with her PCP within one week, sooner if her condition worsens in any way. Delineated problem list as below. # Dyspnea on exertion with resting hypoxia, acute, present on admission -Echocardiogram 60-65% EF -CTA revealed no pulmonary emboli -Negative stress pharmacological nuclear test -They have had a viral etiology. # Anemia: -Unknown etiology -She has received 1 unit red blood cells. -Follow levels. Hemoglobin 8.5 on admission -Deferred to hematology # Chronic recurrent major depressive disorder, chronic, present on admission -continue current medication regimen #Benign essential hypertension, chronic, present on admission -Continue current medication regimen Exam Vital Signs (Last) Date Time Temp Pulse Resp B/P Pulse Ox O2 Delivery O2 Flow Rate FiO2 05/23/16 10:59 36.4 82 20 130/65 95 Room Air 05/23/16 04:14 2.00 Test 05/21/16 16:00 05/21/16 17:06 05/21/16 17:45 05/21/16 21:45 Pro-B-Type Natriuretic Peptide 996.0pg/mL (0-301) Urinalysis Comment None Reticulocyte Count,Calculated 3.1% (0.6-2.6) Iron Level 29ug/dL (35-150) Total Iron Binding Capacity 479ug/dL (250-450) Percent Iron Saturation 6%sat (15-50) Unsaturated Iron Binding 450.1ug/dL Ferritin 31ng/mL (13-150) Hold Purple Top Tube Received (Received) Hold Blue Top Tube Received (Received) Hold [place] Top Tube Received (Received) Hold [place] Top Tube Received (Received) Test 05/22/16 01:10 05/22/16 02:15 05/22/16 05:12 05/23/16 00:24 Haptoglobin 229mg/dL (34-200) Prothrombin Time 9.8sec (8.1-12.5) Prothromb Time International Ratio 0.92ratio Activated Partial Thromboplast Time 25.4sec (22.8-33.0) Hemoglobin A1c 7.4% (4.8-5.6) Magnesium Level 1.9mg/dL (1.6-2.6) Lactate Dehydrogenase 182U/L (100-190) Vitamin B12 Level 1960pg/mL (211-946) Folate 11.6ng/mL (>3.0) Urine Color Straw (YELLOW) Urine Appearance Hazy (CLEAR,HAZY) Urine pH 6.5 (5.0-8.0) Urine Specific [place] 1.015 (1.003-1.035) Urine Protein Negativemg/dL (NEG,TRACE) Urine Glucose (UA) Negativemg/dL (NEGATIVE) Urine Ketones Negativemg/dL (NEGATIVE) Urine Occult Blood Trace (NEGATIVE) Urine Nitrite Negative (NEGATIVE) Urine Bilirubin Negative (NEGATIVE) Urine Urobilinogen Normalmg/dL (NORMAL) Urine Leukocyte Esterase Negative (NEGATIVE) Urine RBC 0-2/hpf (0-2) Urine WBC 0-5/hpf (0-5) Urine Epithelial Cells Many/hpf (NONE-MOD) Urine Crystals None seen (NONE SEEN) Urine Bacteria None/hpf (NONE-FEW) Urine Hyaline Casts None/lpf (NONE) Urine Granular Casts None seen (NONE SEEN) Urine Waxy Casts None seen (NONE SEEN) Urine Red Blood Cell Casts None seen (NONE SEEN) Urine White Blood Cell Casts None seen (NONE SEEN) Urine Mucus None seen (None Seen) Urine Trichomonas None seen (NONE SEEN) Urine Yeast None (NONE SEEN) Urine Culture Reflexed Not indicated Urine Opiates Screen Negative Urine Methadone Screen Negative Urine Barbiturates Screen Negative Urine Amphetamines Screen Negative Urine Benzodiazepines Screen Negative Urine Cocaine Metabolite Screen Negative Urine Cannabinoids Screen Negative Troponin T 0.010ug/L (0.0-0.011) White Blood Count 11.4th/mm3 (3.8-10.1) Red Blood Count 3.83mil/mm3 (3.90-5.20) Hemoglobin 10.0g/dL (12.0-15.6) Hematocrit 34.0% (35.0-46.0) Mean Corpuscular Volume 88.8fL (81-100) Mean Corpuscular Hemoglobin 26.1pg (27.0-35.0) Mean Corpuscular Hemoglobin Concent 29.4% (32.0-37.0) Red Cell Distribution Width 15.0% (12.3-15.4) Platelet Count 391bil/L (150-400) Neutrophils (%) (Auto) 63.0% (40-74) Lymphocytes (%) (Auto) 21.6% (14-46) Monocytes (%) (Auto) 8.5% (4-12) Eosinophils (%) (Auto) 6.3% (0-5) Basophils (%) (Auto) 0.4% (0-3) Sodium Level 138mEq/L (134-144) Potassium Level 4.4mEq/L (3.5-5.2) Chloride Level 100mEq/L (97-108) Carbon Dioxide Level 27mmol/L (18-29) Blood Urea Nitrogen 13mg/dL (8-27) Creatinine 0.54mg/dL (0.57-1.00) Estimat Glomerular Filtration Rate 161mL/min (>59) Glucose Level 120mg/dL (60-99) Calcium Level 9.2mg/dL (8.5-10.1) Total Bilirubin 0.2mg/dL (0.0-1.2) Aspartate Amino Transf (AST/SGOT) 13U/L (0-50) Alanine Aminotransferase (ALT/SGPT) 9U/L (0-32) Alkaline Phosphatase 81U/L (25-165) Total Protein 6.8g/dL (6.4-8.4) Albumin 3.1g/dL (3.4-5.0) Discharge Medications Discharge Medications Ascorbic Acid (Vitamin C) 500 Mg Capsule.er 500 MG PO DAILY Prescribed by: BRANDI HAQ DO Aspirin (Aspirin) 81 Mg Tabec 81 MG PO DAILY Prescribed by: SCOTT FARIAS DO Carvedilol (Carvedilol) 6.25 Mg Tablet 6.25 MG PO BID (Reported) Citalopram (Citalopram) 20 Mg Tablet 1 TABLET PO HS (Reported) Cyanocobalamin (Vitamin B12) 500 Mcg Tablet 2,500 MEQ PO DAILY (Reported) Estradiol (Estradiol) 1 Mg Tablet 1 MG PO DAILY (Reported) Ferrous Sulfate (Ferrous Sulfate) 324 Mg Tablet.dr 324 MG PO DAILY Prescribed by: BRANDI HAQ DO Lisinopril (Lisinopril) 5 Mg Tablet 5 MG PO BID Prescribed by: SCOTT FARIAS DO Omeprazole (Omeprazole) 20 Mg Capsule.dr 20 MG PO BID (Reported) As needed Acetaminophen (Acetaminophen) 325 Mg Tablet 325 MG PO Q4H PRN PRN For Pain ( Reported) Additional med instructions Take iron and vitamin C together with the meal Followup Plan Follow-up plan Follow-up with GI for consideration of colonoscopy in 1-3 weeks Discharge Diet: No restrictions Discharge Activity: Limited until seen by PCP Follow-up with PCP in: 1 week Time spent 45 minutes Brandi Haq DO May 23, 2016 19:36
== END 2016-05-23 15:17 | disposition home or self-care (01) ==
LOC: SED 13:38 → OSC 05-22 00:33
PROVIDERS: ADMIT Specialist; ATTEND Specialist
DX: J96.91 Respiratory failure, unspecified with hypoxia (principal); D50.9 Iron deficiency anemia, unspecified; R07.89 Other chest pain; I10 Essential (primary) hypertension; F32.9 Major depressive disorder, single episode, unspecified; I25.10 Atherosclerotic heart disease of native coronary artery without angina pectoris; K21.9 Gastro-esophageal reflux disease without esophagitis; I51.81 Takotsubo syndrome; Z87.891 Personal history of nicotine dependence; Z79.82 Long term (current) use of aspirin; Z79.890 Hormone replacement therapy; Z23 Encounter for immunization
CPT/HCPCS: 36415; 36430; 36620; 71010; 71275; 78452; 80053; 81000; 82375; 82607; 82728; 82746; 82803; 82948; 83010; 83036; 83540; 83550; 83615; 83735; 83880; 84484; 85025; 85045; 85610; 85730; 86922; 90471; 93005; 93017; 94664; 94799; 96374; 96376; 99285; A9502; C8929; G0378; G0480; J2785; J3490; J7030; J7613; J7620; P9021; Q2039; Q9957; Q9967

== ENCOUNTER 2016-07-21 12:21 | Inpatient (IN) | payer OTHER, MEDICARE ==
[~2016-07-21] VITALS: Ht 157.5 cm; Wt 86.4 kg
[2016-07-21] VITALS (9 sets, daily range): BP systolic 114–147; BP diastolic 42–93; PULSE 78–107; RESP 16–21; O2SAT 92–99
[~2016-07-21 12:21] MED LIST changes: +ASCO500C6 PO; -CALC600T12 PO; -CARV12.52 PO; +CARV6.252 PO; +FERR324T2 PO
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
[2016-07-21] MEDS ORDERED: Ondansetron 2 mg/mL 2 mL Inj IVPUSH PRN ×2 (12:50→17:30)
[2016-07-21 15:35] LABS: BASOPHILS % (AUTO) 0.2 % (0-3); EOSINOPHILS % (AUTO) 2.6 % (0-5); MONOCYTES % (AUTO) 8.8 % (4-12); Mean Corpuscular Hemoglobin 25.1 pg (27.0-35.0); Mean Corpuscular Volume 84.8 fL (81-100); NEUTROPHILS % (AUTO) 71.9 % (40-74); Platelet Count 454 bil/L (150-400)
[2016-07-21] MEDS ORDERED: 0.9% Sodium Chloride 1,000 ML IV SCH (16:00)
[2016-07-21] MEDS ORDERED: 0.9% Sodium Chloride 1,000 ML IV ONE (16:00)
--- NOTE | 2016-07-21 16:35 | DRSVH ---
PROCEDURE: CT ABDOMEN AND PELVIS WITH CONTRAST ([id number]) INDICATIONS: incarcerated hernia TECHNIQUE: After the administration of intravenous contrast, 5 mm thick sections acquired from the diaphragm to the symphysis. 5 mm coronal and sagittal reformats were acquired. For radiation dose reduction, the following was used: automated exposure control, adjustment of mA and/or kV according to patient siz e. COMPARISON: [facility], CT, CT ABD PELVIS W CON, 04/12/2015, 22:48. [facility], CT, ABD/PELVIS W/CON (PNL), 11/25/2012, 18:45. [facility], CT, ABD/PELVIS W/CON (PNL ), 09/23/2011, 13:45. FINDINGS: Image quality: Excellent. ABDOMEN: Lung bases: Lung bases are clear. Heart size is normal. Solid organs: No change in calcified cystic foci within the posterior medial spleen. Liver and splee n are otherwise normal in size and enhancement. Gallbladder is within normal limits. Biliary system is non dilated. Pancreas enhances normally. No adrenal nodules. Kidneys demonstrate normal size a nd enhancement, without hydronephrosis. Peritoneum and bowel: Bowel loops demonstrate normal wall thickness and caliber. No free fluid or a ir. Normal appendix. Nodes and vessels: No retroperitoneal or mesenteric adenopathy by size criteria. Aorta and inferior vena cava are normal in size. Miscellaneous: Fat-containing broad-based anterior abdominal wall hernia is present, as before, measu ring 46 mm. There is fat stranding within the hernia and within the overlying subcutaneous fat, consi stent with the given history of strangulation. PELVIS: Genitourinary: Bladder wall thickness is normal. Miscellaneous: No inguinal hernias or adenopathy. Bones: No suspicious bony lesions. No vertebral body compression fractures. IMPRESSION: 1. Fat stranding within surrounding the fat-containing anterior abdominal wall hernia, compatible wit h the given history of strangulation. 2. Normal appendix. Dictated by: Casper Gonzalez M.D. on 07/21/2016 at 16:26 Approved by: Casper Gonzalez M.D. on 07/21/2016 at 16:29
[2016-07-21] MEDS ORDERED: Meropenem Inj 1,000 MG in IV Premix 1 EACH IV ONE (16:50)
[2016-07-21] MEDS ORDERED: CO Q-10 (17:20)
[2016-07-21] MEDS ORDERED: Alum-Mag Hydrox-Simeth 30 mL Suspension PO PRN (17:30)
[2016-07-21] MEDS ORDERED: Polyethylene Glycol (PEG) 17 Gm Powder PO PRN (17:30)
[2016-07-21] MEDS ORDERED: Meropenem Inj 1,000 MG in IV Premix 1 EACH IV SCH (17:55)
--- NOTE | 2016-07-21 18:14 | NUR ---
Admit Pt admitted to [facility] room 1024 at 1813 via stretcher. Pt able to transfer to bed SBA, steady gait tolerated activity well. On 2L via NC. Pt states pain is a tolerable level of 3/10. at bedside.
--- NOTE | 2016-07-21 18:29 | DRSVH ---
PROCEDURE: X-RAY CHEST ONE VIEW, PORTABLE ([id number]) INDICATIONS: dyspnea,history of Congestive heart failure TECHNIQUE: One view of the chest was acquired. COMPARISON: [facility], CR, XR CHEST 1VW (PORTABLE), 05/21/2016, 15:05. FINDINGS: Surgical changes and devices: None. Lungs and pleura: No pleural effusions or pneumothorax. Lungs are clear. Mediastinum: Mediastinal contours appear normal. Heart size is normal. Bones and chest wall: No suspicious bony lesions. Overlying soft tissues appear unremarkable. IMPRESSION: No acute process. Dictated by: Casper Gonzalez M.D. on 07/21/2016 at 18:27 Approved by: Casper Gonzalez M.D. on 07/21/2016 at 18:28
--- NOTE | 2016-07-21 18:38 | PCM.HPMED ---
Subjective Date of Service Jul 21, 2016 Primary Provider: Admitting Physician: Antoni Coello MD Primary Care Physician: Estevan Weeks MD Attending Physician: Antoni Coello MD Chief Complaint: "abdominal pain" History of Present Illness: Ms. Megan Wen is a 66 year old female with history of broken heart syndrome , coronary artery disease, hypertension, gastroesophageal reflux disease, depression, and previous hernia repair with mesh who was sent to the emergency department from urgent care for upper abdominal pain. Ten year ago, she had an abdominal hernia repaired with mesh. She has noticed sharp, intermittent abdominal pain with a protrusion where the previous hernia was before for the past 2 weeks. Over the past few days, it has gotten worse and the protrusion has become larger. Prior to the abdominal pain and abdominal protrusion starting , she had an upper respiratory infection with coughing. She noticed the coughing made her pain worse. It also gets worse when she bends forward to pick things up. She tried taking acetaminophen without relief. She also has a headache, nausea, fever for 7 days, and chills. She is still able to pass gas and has had one episode of loose stool. She does not have vomiting, hematemesis , hematochezia, melena, dysuria, and hematuria. For her allergy list, patient reports recently completing an azithromycin pack for her upper respiratory infection without any rashes or complications. In the emergency department, she had a CT abdomen and pelvis with contrast that showed fat stranding within surrounding the fat-containing anterior abdominal wall hernia, compatible with the given history of strangulation and a normal appendix. She also has leukocytosis of 16.2. Surgery was consulted and will see the patient and asked that the patient be started on antibiotics. She has been started on IV meropenem due to her medication allergy list. She is also currently receiving IV normal saline. Review of Systems: A comprehensive review of systems was conducted with the patient and found to be negative except as above in the History of Present Illness. Allergies Coded Allergies: Penicillins (Verified Allergy, Mild, 07/21/16) erythromycin ethylsuccinate (Verified Allergy, Mild, OK WITH AZITHROMYCIN , 07/21/16) tetracycline (Verified Allergy, Mild, 07/21/16) aspirin (Verified Allergy, Unknown, 07/21/16) PMH "Broken heart syndrome" Coronary artery disease Gastroesophageal reflux disease Hypertension Depression Urinary tract infection during pregnancies Surgical History Abdominal hernia with mesh repair Bilateral eye surgery (cataracts) Angioplasty Partial hysterectomy Family History Mother diabetes mellitus, hypertension, and coronary artery disease and she from congestive heart failure. Father heart disease. Brother diabetes mellitus. Social History Occupation: [id number] mom Hx Alcohol Use: Yes (occasional) Hx Substance Use: No Hx Tobacco Use: No Smoking Status: Former Smoker (quit 20 years ago) Living Arrangement: with Family Exam Vital Signs Vital Sign - Last Date Time Temp Pulse Resp B/P Pulse Ox O2 Delivery O2 Flow Rate FiO2 07/21/16 17:39 37 101 19 142/46 96 Room Air Exam General: No acute distress, well-developed, well-nourished, appropriately interactive HEENT: Normocephalic, atraumatic. External ears without defect. Pupils equal, round, and reactive to light and accommodation. Anicteric sclerae, moist conjunctivae, and no lid lag. Oropharynx free of erythema and cobble stoning with moist mucosa. Neck: Supple with full range of motion. No jugular venous distension. No bruits. No lymphadenopathy or thyromegaly. Cardiovascular: Regular rate and rhythm with no murmurs, rubs, or gallops appreciated Pulmonary: Clear to auscultation bilaterally with no crackles, wheezes, or rhonchi. Normal respiratory effort with no use of accessory muscles. Abdomen: Mild erythema on right upper quadrant. Tenderness at palpable, oblong mass approximately 7 cm in length that is reducible and protrudes with valsalva maneuver. Bowel tones present. Soft. No hepatosplenomegaly appreciated. Extremities: No clubbing, cyanosis, edema, or lymphadenopathy appreciated. Skin: Normal temperature, turgor, and texture; no rash, ulcers, or subcutaneous nodules appreciated. Neurological: Cranial nerves grossly intact. Normal muscle strength, tone, and bulk. Reflexes, coordination, and sensory function within normal limits. No known gait impairment. Psychiatric: Normal mood and affect. Alert and oriented to person, place, and time. Lab and Diagnostics Result Diagram: 07/21/16 1335 07/21/16 1335 X-Rays, CTs and MRIs PROCEDURE: CT ABDOMEN AND PELVIS WITH CONTRAST IMPRESSION: 1. Fat stranding within surrounding the fat-containing anterior abdominal wall hernia, compatible with the given history of strangulation. 2. Normal appendix. Approved by: Casper Gonzalez M.D. on 07/21/2016 at 16:29 Assessment & Plan #Strangulated ventral hernia, acute, present on admission. Active. -Patient has tenderness and erythema at the hernia site. CT abdomen/pelvis as above shows fat stranding of the abdominal wall hernia and pt has leukocytosis. -Meropenem IV antibiotics -Morphine as needed for pain -Surgery consulted and following. Their time and recommendations are appreciated. # history of Takotsubo CMP -no sign of CHF now,CXR normal -monitor #History of hypertension -Continue home medications of lisinopril and carvedilol #Depression, chronic. -Continue home medication of citalopram #Gastroesophageal reflux disease, chronic. -Continue home medication of omeprazole Other chronic conditions: -Broken heart syndrome - continue enteric-coated aspirin 81 mg daily -Cataracts s/p bilateral eye surgery -S/p partial hysterectomy Bowel regimen Senna and MiraLAX scheduled and PRN. Zofran when necessary for nausea and vomiting. DVT prophylaxis: Holding for now as patient is pending surgical intervention for strangulated ventral hernia. Code status: Full code Resuscitation Status: CPR: Attempt Resuscitation Attending Statement The patient was seen and examined together with Dr. Bledsoe on 07/21/2016 and I agree with the history, exam and plan as outlined in the note above. Nikki Bledsoe DO Jul 21, 2016 18:38 Antoni Coello MD Jul 22, 2016 06:54
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
[2016-07-21] MEDS: 0.9% Sodium Chloride 1,000 ML IV SCH (21:34)
[2016-07-21] MEDS: Pantoprazole 20 mg ER24 Tablet PO SCH (21:34)
[2016-07-22] VITALS (21 sets, daily range): BP systolic 101–145; BP diastolic 38–68; PULSE 73–100; RESP 10–17; O2SAT 91–97
[2016-07-22] MEDS: 0.9% Sodium Chloride 1,000 ML IV SCH ×3 (03:14→17:34)
[2016-07-22] MEDS ORDERED: Acetaminophen IV 1,000 MG in IV Premix 1 EACH IV ONE (05:55)
[2016-07-22 06:48] LABS: BASOPHILS % (AUTO) 0.3 % (0-3); MONOCYTES % (AUTO) 7.1 % (4-12); Mean Corpuscular Hemoglobin 24.4 pg (27.0-35.0); Mean Corpuscular Volume 86.1 fL (81-100); NEUTROPHILS % (AUTO) 73.7 % (40-74); Platelet Count 406 bil/L (150-400)
[2016-07-22] MEDS ORDERED: Lactated Ringer's 1,000 ML IV ONE ×2 (07:00)
--- NOTE | 2016-07-22 07:21 | NUR ---
Pain/Temp Pt c/o headache 5/10 pain and increased temp of 99.8. James harris MD and new orders for IV Tylenol given. Awaiting pharmacy delivery. NPO status for day surgery at 0830. Care ongoing.
[2016-07-22] MEDS ORDERED: Dexamethasone 4 mg/mL Inj ONE (07:33)
[2016-07-22] MEDS ORDERED: Phenylephrine/NS 100 mCg/mL 10 mL Syringe IVPUSH ONE (07:33)
[2016-07-22] MEDS ORDERED: fentaNYL-PF 50 mCg/mL 2 mL Inj ONE (07:33)
[2016-07-22] MEDS ORDERED: Lidocaine PF 1% 30 mL Inj ONE (07:33)
[2016-07-22] MEDS ORDERED: Ondansetron 2 mg/mL 2 mL Inj ONE (07:33)
[2016-07-22] MEDS ORDERED: Propofol 10,000 mCg/mL 20 mL Inj ONE (07:33)
--- NOTE | 2016-07-22 07:54 | PCM.HPANE ---
Patient Data Date of Service: Jul 22, 2016 Surgeon Admitting Provider:Antoni Coello MD Attending Provider:Antoni Coello MD Primary Care Physician:Estevan Weeks MD Other Provider: Reason for Visit Strangulated Ventral Hernia STRANGULATED VENTRAL HERNIA Ht/WT & BMI Height (Feet): 5 Height (Inches): 2.00 Weight (Kilograms): 82.000 Body Mass Index 33.35 Allergies Coded Allergies: Penicillins (Verified Allergy, Mild, 07/21/16) erythromycin ethylsuccinate (Verified Allergy, Mild, OK WITH AZITHROMYCIN , 07/21/16) tetracycline (Verified Allergy, Mild, 07/21/16) aspirin (Verified Allergy, Unknown, 07/21/16) Past Anesthesia History Anesthesia History: Denies:: Anesthesia Reactions Diabetes History Hx Diabetes?: No MRSA MRSA: No Medications Home Meds Incl Beta Esha: Yes Date Beta Esha Taken: Jul 21, 2016 Time Beta Esha Taken: 20:30 Previous Beta Esha Dose >24: Previous Dose <24 Hours Active Scripts Lisinopril 5 Mg Tablet5 Mg PO BID #60 TABLET Prov:Millie Jerome DO 04/21/15 Aspirin 81 Mg Tabec81 Mg PO DAILY #30 Prov:Millie Jerome DO 04/21/15 Reported Medications [Co Q-10] No Conflict Check 07/21/16 Carvedilol 6.25 Mg Tablet6.25 Mg PO BID Ref 0 05/22/16 Estradiol 1 Mg Tablet1 Mg PO DAILY Ref 0 04/13/15 Citalopram 20 Mg Tablet1 Tablet PO HS 04/13/15 Omeprazole 20 Mg Capsule.dr20 Mg PO BID Ref 0 04/13/15 Acetaminophen 325 Mg Pepqxw580 Mg PO Q4H PRN For Pain Ref 0 04/13/15 Cyanocobalamin (Vitamin B12)500 Mcg Tablet2,500 Meq PO DAILY 04/13/15 Discontinued Scripts Ascorbic Acid (Vitamin C)500 Mg Capsule.er500 Mg PO DAILY 30 Days Prov:Rolf Haq DO 05/23/16 Ferrous Sulfate 324 Mg Tablet.dr324 Mg PO DAILY 30 Days Ref 0 Prov:Rolf Haq DO 05/23/16 History History of ENT Problems?: Yes HEENT History: Positive for:: Cataracts (bilat surgeries done) Denies:: Dysphagia Glaucoma Sinus Problem Denture Type: Full- Upper Full- Lower Hx of Heart Problems?: Yes Cardiovascular History: Positive for:: Cardiac Surgery (angioplasty 2003) Hypertension Denies:: Chest Pain Congestive Heart Failure Edema Heart Murmur Irregular Heartbeat Pacemaker Thrombophlebitis Hx of Respiratory Problem?: Yes Respiratory History: Positive for:: Dyspnea Pneumonia (May 2009) Denies:: Asthma COPD Chest Surgery Emphysema Hemoptysis Tuberculosis Hx Neurologic Problems?: Yes Neurological History: Positive for:: Headaches Seizures (SEIZURES WHEN SHE GOT A HIGH FEVER, 40YRS AGO) Denies:: Alzheimer's Disease CVA Dementia Dizziness Parkinson's Disease Hx of GI Problems?: Yes Gastrointestinal History: Positive for:: Diverticulitis Gastroesphageal Reflux Gastrointestinal Bleeding Heartburn Denies:: Hepatitis Hiatal Hernia Rectal Bleeding Hx of Problems?: Yes Genitourinary History: Positive for:: Kidney Stones (Frequent) Urinary Tract Infection Denies:: HX of Hemodialysis HX of Peritoneal Dialysis: No Female Hx: Denies:: Currently Endometriosis Pelvic Inflammatory Problems with Breasts? Hx Musculoskeletal Problems?: No Musculoskeletal History: Denies:: Back Injury Joint Replacement Musculoskeletal Trauma Hx of Psycho/Social Problems?: Yes Psycho Social History: Positive for:: Hx Depression Denies:: Anxiety Bipolar Disorder Suicide Attempt Hx Surgeries?: Yes (HYSTERECTOMY IN 1974, ventral hernia repair 2008) Hx Any Other Health Problems?: No Other History: Positive for:: Hospitalization (pneumonia) Denies:: Cancer Endocrine Disease Thyroid Disease History Blood Transfusions: Positive for:: Accept Blood Products? Blood Transfusions (May 2016) Denies:: Blood Transfuse Reaction Hx Diabetes: No Occupation: [id number] mom Hx Alcohol Use: Yes (occasional)Hx Substance Use: No Smoking Status: Former Smoker (quit 20 years ago) Have You Smoked inLast 12 mo: No Stop/Bang MARIO Risk Assessment: Low Risk, <3 Yes Risk Assessment Category Category 1A: Patient has history of documented sleep apnea, and HAS NOT received any narcotic, sedative or anesthesia administration during this stay. Category 1B: Patient has history of documented sleep apnea, and HAS received any narcotic , sedative or anesthesia administration during this stay Category 2: Patient has SUSPECTED Obstructive Sleep Apnea, and HAS received any narcotic , sedative or anesthesia administration during this stay. Category 3: Patient has SUSPECTED Obstructive Sleep Apnea and HAS NOT received narcotic, sedative or anesthesia administration during this stay. Category 4: Outpatient in Procedural Areas with known sleep apnea or who screen positive for High Risk via the STOP/BANG questionnaire. Exam Exam Vital Signs Vital Signs Date Time Temp Pulse Resp B/P Pulse Ox O2 Delivery O2 Flow Rate FiO2 07/22/16 05:53 93 07/22/16 05:34 37.7 100 16 129/61 96 Nasal Cannula 2.00 07/22/16 00:33 37.2 98 16 145/67 97 Nasal Cannula 2.00 General Appearance: Alert, Oriented X3, Cooperative, No Acute Distress HEENT/AIRWAY: MP 2, Neck Movement (limited on exam), Mouth Opening (3 FB), Other (tmd 3 fb) Lungs: Clear to Auscultation, Normal Air Movement Heart: Exam Unremarkable, Regular Rate/Rhythm, No Murmurs/Rubs/Gallops Meds/Labs/Diagnostics Admission Meds Current Medications Sodium Chloride 1,000 ml @ 0 mls/hr Q0M ONCE IV Last administered on 07/21/16 16:13; Start 07/21/16 at 16:00; Stop 07/21/16 at 16:01; Status DC Meropenem-0.9% Sodium Chloride 1000 mg/Premix 50 ml @ 100 mls/hr ONCE ONCE IV Last administered on 07/21/16 17:33; Start 07/21/16 at 16:50; Stop 07/21/16 at 17:19; Status DC Sodium Chloride (Normal Saline) 1,000 ml @ 100 mls/hr Q10H IV Last administered on 07/22/16 03:14; Start 07/21/16 at 17:30 Carvedilol (Coreg) 6.25 mg BID PO Last administered on 07/21/16 21:35; Start at 20:30 Citalopram Hydrobromide (CeleXA) 20 mg HS PO Last administered on 07/21/16 21: 34; Start 07/21/16 at 21:00 Lisinopril (Zestril) 5 mg BID PO Last administered on 07/21/16 21:35; Start 07/21/16 at 20:30 Pantoprazole 20 mg 20 mg BID PO Last administered on 07/21/16 21:34; Start 07/21 at 20:30 Acetaminophen/ Premix (Tylenol IV/IV Premix) 100 ml @ 400 mls/hr ONCE ONCE IV Last administered on 07/22/16 07:28; Start 07/22/16 at 05:55; Stop 07/22/16 at 06:09; Status DC Bupivacaine HCl/ Epinephrine Bitart 50 ml 50 ml STK-MED ONCE INFILTRATE Last administered on 07/22/16 07:00; Start 07/22/16 at 07:00; Stop 07/22/16 at 07:03; Status DC Lactated Ringer's (Lr) 1,000 ml @ ud STK-MED ONCE IV Last administered on 07:00; Start 07/22/16 at 07:00; Stop 07/22/16 at 07:03; Status DC Labs Test 07/21/16 16:45 07/22/16 06:22 Lactic Acid Level 0.6mmol/L (0.4-2.0) White Blood Count 13.2th/mm3 (3.8-10.1) Red Blood Count 3.53mil/mm3 (3.90-5.20) Hemoglobin 8.6g/dL (12.0-15.6) Hematocrit 30.4% (35.0-46.0) Mean Corpuscular Volume 86.1fL (81-100) Mean Corpuscular Hemoglobin 24.4pg (27.0-35.0) Mean Corpuscular Hemoglobin Concent 28.3% (32.0-37.0) Red Cell Distribution Width 17.0% (12.3-15.4) Platelet Count 406bil/L (150-400) Neutrophils (%) (Auto) 73.7% (40-74) Lymphocytes (%) (Auto) 15.7% (14-46) Monocytes (%) (Auto) 7.1% (4-12) Eosinophils (%) (Auto) 3.0% (0-5) Basophils (%) (Auto) 0.3% (0-3) Sodium Level 136mEq/L (134-144) Potassium Level 4.5mEq/L (3.5-5.2) Chloride Level 100mEq/L (97-108) Carbon Dioxide Level 22mmol/L (18-29) Blood Urea Nitrogen 12mg/dL (8-27) Creatinine 0.68mg/dL (0.57-1.00) Estimat Glomerular Filtration Rate 123mL/min (>59) Glucose Level 142mg/dL (60-99) Calcium Level 8.6mg/dL (8.5-10.1) Total Bilirubin 0.3mg/dL (0.0-1.2) Aspartate Amino Transf (AST/SGOT) 11U/L (0-50) Alanine Aminotransferase (ALT/SGPT) 6U/L (0-32) Alkaline Phosphatase 78U/L (25-165) Total Protein 6.9g/dL (6.4-8.4) Albumin 3.1g/dL (3.4-5.0) Plan Impression Patient chart reviewed, patient interviewed and anesthestic plan with risks, benefits, and alternatives discussed, and informed consent obtained. ASA Physical Status: ASA2 Mod Systemic Disease Anesthetic Plan: GA Bene/Risks/Altern/Consents: Yes HP Complete Prior to Induction: Yes Delfin Murguia MD Jul 22, 2016 07:54
[2016-07-22] MEDS ORDERED: levoFLOXacin Inj 500 MG in IV Premix 1 EACH IV SCH (08:30)
[2016-07-22] MEDS: Pantoprazole 20 mg ER24 Tablet PO SCH ×2 (08:30→18:08)
[2016-07-22] MEDS ORDERED: metroNIDAZOLE Inj 500 MG in IV Premix 1 EACH IV SCH (08:30)
[2016-07-22] MEDS ORDERED: Bupivacaine 0.5%/EPI 50 mL Inj INFILTRATE ONE (08:37)
[2016-07-22] MEDS ORDERED: Lactated Ringer's 500 ML IV PRN (08:42)
[2016-07-22] MEDS ORDERED: Lactated Ringer's 1,000 ML IV SCH (08:42)
[2016-07-22] MEDS ORDERED: Ondansetron 2 mg/mL 2 mL Inj IVPUSH PRN (08:45)
[2016-07-22] MEDS ORDERED: EPHEDrine Sulfate 50 mg/mL Inj IVPUSH PRN (08:45)
[2016-07-22] MEDS ORDERED: hydrALAZINE 20 mg/mL Inj IVPUSH PRN (08:45)
[2016-07-22] MEDS ORDERED: Phenylephrine 10,000 mCg/mL Inj IVPUSH PRN (08:45)
[2016-07-22] MEDS ORDERED: EPHEDrine Sulfate 50 mg/mL Inj IM PRN (08:45)
[2016-07-22] MEDS ORDERED: hydrOXYzine Inj 25 MG/1 mL SDV IM PRN (08:45)
[2016-07-22] MEDS ORDERED: Atropine 0.4 mg/mL Inj IVPUSH PRN (08:45)
[2016-07-22] MEDS ORDERED: fentaNYL-PF 50 mCg/mL 2 mL Inj IVPUSH PRN (08:45)
[2016-07-22] MEDS ORDERED: diphenhydrAMINE 25 mg Capsule PO PRN (09:55)
[2016-07-22] MEDS ORDERED: MetoCLOpramide 5 mg/mL 2 mL Inj IVPUSH PRN (09:55)
[2016-07-22] MEDS ORDERED: Polyethylene Glycol (PEG) 17 Gm Powder PO ONE (09:55)
[2016-07-22] MEDS: HYDROmorphone 1 mg/mL Inj IVPUSH PRN ×2 (10:20→10:40)
--- NOTE | 2016-07-22 11:20 | PCM.ANEP1 ---
Post Anesthesia Phase 1 PACU Phase 1 Assessment Date of Service: Jul 22, 2016 Vital Signs Vital Signs Date Time Temp Pulse Resp B/P Pulse Ox O2 Delivery O2 Flow Rate FiO2 07/22/16 11:10 85 14 117/38 94 Nasal Cannula 3 07/22/16 11:02 86 11 117/40 94 Nasal Cannula 3 07/22/16 10:44 88 10 119/42 95 Nasal Cannula 4 07/22/16 10:30 90 11 128/40 95 Nasal Cannula 4 07/22/16 10:19 36.6 89 12 132/43 96 Nasal Cannula 4 07/22/16 10:10 92 13 118/51 96 Nasal Cannula 4 07/22/16 10:05 92 13 114/50 95 Nasal Cannula 4 07/22/16 10:00 92 12 124/53 95 Nasal Cannula 4 07/22/16 09:53 36.9 93 13 126/43 93 Nasal Cannula 2 07/22/16 07:30 95 07/22/16 05:53 93 07/22/16 05:34 37.7 100 16 129/61 96 Nasal Cannula 2.00 Anesthetic Administered: GA Level of Alertness: Sleepy, easy to arouse DORADO's with Equal Strength: Yes Pain: No Pain Scale Score: 5 Nausea or Vomiting: No Oxygen Delivery: Nasal Cannula Lungs: Clear to Auscultation, Normal Air Movement Dermatome Level: Full Sensation Delfin Murguia MD Jul 22, 2016 11:20
--- NOTE | 2016-07-22 11:21 | PCM.ANEP2 ---
Post Anesthesia Evaluation ASA/CMS Post Anesthesia Date of Service: Jul 22, 2016 VS in Patient's Normal Range?: Yes Resp Stable; Airway Patent?: Yes CV Function & Hydration Stable: Yes Mental Status Recovered?: Yes Pain control Satisfactory?: Yes N/V Control Satisfactory?: Yes Delfin Murguia MD Jul 22, 2016 11:21
--- NOTE | 2016-07-22 11:31 | NUR ---
OR/Post Op Pt left floor at approx 0730 to the OR. Report given to TESSA Garcia. Left via cristin. w/ NS running and O2 2 L Pt arrived back to her room at approx 1125. Rec'd report from Radha. Pt arrived via gurney and was transferred to the hospital bed via slider board and 4 person assist. IV running NS at 100. Pt sleepy, but arousable, complains of 7/10 pain, no nausea at this time. [place] alarm in place. 3L O2 via NC. Call light w/in reach. Bed down and in locked position.
[2016-07-22] MEDS: HYDROmorphone PCA 0.2 mg/mL 30 mL Inj IV PRN (12:22)
--- NOTE | 2016-07-22 14:43 | NUR ---
Social Work- Initial Assessment Data: See Initial Assessment. Pt is a 66 year old female admitted 07/21/16 for strangulated ventral hernia. Pt's insurance is [employer] and Medicare. Pt's PCP is Estevan Weeks MD. CICI spoke with pt and at bedside regarding discharge planning, SW role explained. Pt was alert and oriented x3. Pt resides in [place] with her where she remains independent with ADLs. Pt uses no DME and drives. Pt has no HH or SNF history. Pt has no LTC insurance or VA benefits. SW spoke with pt regarding DPOA, encouraged pt to complete this paperwork and bring completed copy to hospital. Pt to discharge home with to transport via POV. SW provided phone number and plan on whiteboard. No anticipated discharge needs. SW will continue to follow. Assessment: [place]. Plan: Pt to discharge home with to transport via POV. No anticipated discharge needs. SW will continue to follow. CONNOR Wood Addendum: 07/22/16 at 1446 by WEI VALENTIN Amended: Links added.
--- NOTE | 2016-07-22 15:37 | PCM.PNMED ---
Subjective Date of Service Jul 22, 2016 Subjective pt was seen after the surgery Exam Vital Signs Vital Sign - Last Date Time Temp Pulse Resp B/P Pulse Ox O2 Delivery O2 Flow Rate FiO2 07/22/16 13:07 14 97 07/22/16 11:33 35.5 84 121/65 Nasal Cannula 3.00 Intake and Output 07/21/16 07/21/16 07/22/16 Cumulative From/Thru 15:00 23:00 07:00 07/21/16 12:39 - 07/22/16 06:24 Intake Total 1000 ml 1412 ml 2412 ml Output Total 0 ml 500 ml 500 ml Balance 1000 ml 912 ml 1912 ml Intake Oral 0 ml 350 ml 350 ml IV Total 1000 ml 1062 ml 2062 ml Output Urine Total 0 ml 0 ml Urine/Stool Mix 500 ml 500 ml Exam NAD, comfortably laying down on the bed no JVD, MMM, no LAD RRR, nl s1, s2 no mrg CTAB, no w,c S,tender fresh scar sterilely dressed warm, no edema, pulses 2/2 Lab and Diagnostics Result Diagram: 07/22/1622 07/22/16 0622 X-Rays, CTs and MRIs PROCEDURE: CT ABDOMEN AND PELVIS WITH CONTRAST IMPRESSION: 1. Fat stranding within surrounding the fat-containing anterior abdominal wall hernia, compatible with the given history of strangulation. 2. Normal appendix. Approved by: Casper Gonzalez M.D. on 07/21/2016 at 16:29 Assessment & Plan acute, acitve #Strangulated ventral hernia, acute, present on admission, Patient has tenderness and erythema at the hernia site. CT abdomen/pelvis as above shows fat stranding of the abdominal wall hernia and pt has leukocytosis. s/p surgery on 07/22 -appreciate surgical management on pain, diet, dvt ppx. -s/p Meropenem IV, no more abx, pt is clinically stable. -Morphine as needed for pain chronic, stable # history of Takotsubo CMP, no pain, euvolemic, #History of hypertension, Continue home medications of lisinopril and carvedilol #Depression, chronic, Continue home medication of citalopram #Gastroesophageal reflux disease, chronic, Continue home medication of omeprazole Other chronic conditions: -Broken heart syndrome - continue enteric-coated aspirin 81 mg daily -Cataracts s/p bilateral eye surgery -S/p partial hysterectomy Code status: Full code dispo: likely 2-3more days based on surgical course Full Code dvt ppx: per surgery team VTE Mechanical Devices: Intermittant Pneumatic CD Resuscitation Status: CPR: Attempt Resuscitation Time spent 35min Robbie Chavez MD Jul 22, 2016 14:11
--- NOTE | 2016-07-22 20:21 | NUR ---
BP meds BP 101/49 hr 86;held Lisinopril and Coreg. No s/sx of hypo/hypertension noted. care ongoing.
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
[2016-07-23] VITALS (11 sets, daily range): BP systolic 106–133; BP diastolic 51–67; PULSE 85–119; RESP 16–20; O2SAT 97–99
[2016-07-23] MEDS: 0.9% Sodium Chloride 1,000 ML IV SCH ×2 (04:31→15:24)
[2016-07-23 07:11] LABS: BASOPHILS % (AUTO) 0.1 % (0-3); EOSINOPHILS % (AUTO) 0.1 % (0-5); MONOCYTES % (AUTO) 8.1 % (4-12); Mean Corpuscular Hemoglobin 24.7 pg (27.0-35.0); NEUTROPHILS % (AUTO) 83.4 % (40-74); Platelet Count 396 bil/L (150-400)
[2016-07-23 07:24] LABS: Magnesium 2.2 mg/dL (1.6-2.6); Phosphorus 2.7 mg/dL (2.5-4.9)
[2016-07-23] MEDS: Pantoprazole 20 mg ER24 Tablet PO SCH ×2 (08:00→16:11)
--- NOTE | 2016-07-23 10:10 | PCM.PNMED ---
Subjective Date of Service Jul 23, 2016 Subjective pt is doing well, pain controlled with LEAN PROCESS DEPLOYMENT CONSULTANT denied SOB, cough up chunk of sputum this AM, no more cough/sputum encouraged to use spirometer. Exam Vital Signs Vital Sign - Last Date Time Temp Pulse Resp B/P Pulse Ox O2 Delivery O2 Flow Rate FiO2 07/23/16 09:22 85 07/23/16 08:02 109/65 07/23/16 05:53 16 97 07/23/16 05:31 36.3 Nasal Cannula 3.00 Intake and Output 07/22/16 07/22/16 07/23/16 Cumulative From/Thru 15:00 23:00 07:00 07/21/16 12:39 - 07/23/16 06:48 Intake Total 600 ml 1606 ml 1814 ml 6432 ml Output Total 500 ml 700 ml 1700 ml Balance 600 ml 1106 ml 1114 ml 4732 ml Intake Oral 850 ml 700 ml 1900 ml IV Total 600 ml 756 ml 1114 ml 4532 ml Output Urine Total 700 ml 700 ml Urine/Stool Mix 500 ml 1000 ml # Voids 3 3 Exam NAD, comfortably laying down on the bed no JVD, MMM, no LAD RRR, nl s1, s2 no mrg CTAB, no w,c S,tender fresh scar sterilely dressed, hyperactive BS+ warm, no edema, pulses 2/2 IVs and Medications Medications Reviewed: Medications were reviewed in detail Lab and Diagnostics Result Diagram: 07/23/1661107/23/16611 X-Rays, CTs and MRIs PROCEDURE: CT ABDOMEN AND PELVIS WITH CONTRAST IMPRESSION: 1. Fat stranding within surrounding the fat-containing anterior abdominal wall hernia, compatible with the given history of strangulation. 2. Normal appendix. Approved by: Casper Gonzalez M.D. on 07/21/2016 at 16:29 Assessment & Plan acute, acitve #Strangulated ventral hernia, acute, present on admission, Patient has tenderness and erythema at the hernia site. CT abdomen/pelvis as above shows fat stranding of the abdominal wall hernia and pt has leukocytosis. s/p surgery on 07/22 -appreciate surgical management on pain, diet, dvt ppx. -s/p Meropenem IV, no more abx, pt is clinically stable. -Morphine as needed for pain chronic, stable # history of Takotsubo CMP, no pain, euvolemic, #History of hypertension, Continue home medications of lisinopril and carvedilol #Depression, chronic, Continue home medication of citalopram #Gastroesophageal reflux disease, chronic, Continue home medication of omeprazole Other chronic conditions: -Broken heart syndrome - continue enteric-coated aspirin 81 mg daily -Cataracts s/p bilateral eye surgery -S/p partial hysterectomy Code status: Full code dispo: likely 2-3more days based on surgical course Full Code dvt ppx: per surgery team VTE Mechanical Devices: Intermittant Pneumatic CD Resuscitation Status: CPR: Attempt Resuscitation Time spent 35min Robbie Chavez MD Jul 23, 2016 10:10
--- NOTE | 2016-07-23 15:54 | PCM.PNSURG ---
Subjective Date of Service: Jul 23, 2016 Date of Service: Jul 23, 2016 Visit Information: Reason for Visit: Post op visit Surgery: Open repair of incarcerated recurrent ventral hernia with strangulation. Post-Op Day # 1 Date of Admission: Jul 21, 2016 at 17:20 Subjective: The patient states her pain is moderate and concerned whether or not it will be manageable at home Gastrointestinal: Tolerating Oral Feedings, No N/V, Normal Bowel Movement ( last one 07/22/16) Pain Management: SENIOR JAVA DATA ARCHITECT without Basal Postop Activity: Ambulate with Assist Objective Vital Sign- Last 8 Hours Date Time Temp Pulse Resp B/P Pulse Ox O2 Delivery O2 Flow Rate FiO2 07/23/16 13:43 16 98 07/23/16 12:17 36.0 87 17 106/55 98 Nasal Cannula 3.00 07/23/16 09:22 85 07/23/16 08:15 Supplement Oxygen 07/23/16 08:02 86 109/65 Intake and Output- Last 8 Hour 07/23/16 Cumulative From/Thru 07:00 07/21/16 12:39 - 07/23/16 06:48 Intake Total 1814 ml 6432 ml Output Total 700 ml 1700 ml Balance 1114 ml 4732 ml Intake Oral 700 ml 1900 ml IV Total 1114 ml 4532 ml Output Urine Total 700 ml 700 ml Urine/Stool Mix 1000 ml # Voids 3 General: Alert, Oriented X3 Lungs: Clear to Auscultation Heart: Regular Rate/Rhythm, No Murmurs/Rubs/Gallops Abdomen: Soft, Appropriately tender, Non-distended, Normoactive bowel tones SURGICAL WOUND : Wound General Appearence: Steri Strips, Intact, No Erythema, No Discharge Dressing & Drainage Status: Intact Extremities: Thigh&Calf Soft/Nontender Neuro: Grossly Neurologically Intact Catheters: None Result Diagram: 07/23/16 0612 07/23/16 0612 Lab & Micro Results: WBC 13.2 - 19.0 Hct 28.9 Glucose 162 Assessment & Plan Impression 66 yo female S/P Open repair incarcerated hernia with mesh. Surgically stable Secondary diagnosis: Broken heart syndrome Coronary artery disease S/P angioplasty HTN Obesity BMI 33.3 GE reflux disease Depression Hx urinary tract infections Hx cataract surgery Hx partial hysterectomy Problems: Plan Continue with pain control via SENIOR JAVA DATA ARCHITECT. Transition to orals tomorrow D/C IV fluids; tolerating PO Recheck CBC in AM Ambulate tid Home 1-2 days Resuscitation Status: CPR: Attempt Resuscitation Nichole Rodriguez PA-C Jul 23, 2016 15:54
--- NOTE | 2016-07-23 16:05 | NUR ---
ACTIVITY Patient got up out of bed with SBA, ambulated into bathroom without any problem. Assist only with navigating IV pole. Ambulated around hallway as well. Passing flatus, no BM yet. Good appetite, denies nausea/vomiting. SUB ASSEMBLY TEAM WORKER dilaudid is managing pain well. Still requiring 1 LPM O2 off/on throughout the day. Encouraging use of incentive spirometer hourly. Continue hourly monitoring.
[2016-07-23] MEDS ORDERED: Haloperidol 5 mg/mL Inj IVPUSH ONE (23:55)
[2016-07-24] VITALS (9 sets, daily range): BP systolic 119–151; BP diastolic 61–72; PULSE 80–116; RESP 17–20; O2SAT 93–97
[2016-07-24 00:38] LABS: BASOPHILS % (AUTO) 0.2 % (0-3); EOSINOPHILS % (AUTO) 2.5 % (0-5); MONOCYTES % (AUTO) 8.1 % (4-12); Mean Corpuscular Hemoglobin 24.2 pg (27.0-35.0); Mean Corpuscular Volume 87.4 fL (81-100); NEUTROPHILS % (AUTO) 71.6 % (40-74); Platelet Count 425 bil/L (150-400)
[2016-07-24] MEDS ORDERED: Haloperidol 5 mg/mL Inj IVPUSH ONE (02:00)
[2016-07-24] MEDS: HYDROmorphone PCA 0.2 mg/mL 30 mL Inj IV PRN (05:43)
--- NOTE | 2016-07-24 06:43 | NUR ---
Mentation At the beginning of the shift, patient became very confused. She was argumentative with spouse and nursing staff. Patient spike a temperature of 99.5 and complained of belly being tender. paged. CBC, Lactic Acid, BNP ordered along with abdominal series. Dr. Smith examined patient. Patient pulled out IV, pulled off tele leads, and crumpled up IV lines. made aware of situation. Haldol ordered. IV restarted by float RN. Patient became extremely nauseated and vomited 100 ml of emesis. Reglan administered along with Haldol. Patient complained of headache at a 10/10 on pain scale. Patient encouraged to use SPOTLIGHT OPERATOR pump. Not comprehending use of the pump. Lights turned down low. Patient trying to rest. Call light will be use by spouse. Care continues.
[2016-07-24 08:22] LABS: BASOPHILS % (AUTO) 0.2 % (0-3); EOSINOPHILS % (AUTO) 1.7 % (0-5); MONOCYTES % (AUTO) 7.4 % (4-12); Mean Corpuscular Hemoglobin 24.5 pg (27.0-35.0); Mean Corpuscular Volume 87.2 fL (81-100); NEUTROPHILS % (AUTO) 82.3 % (40-74); Platelet Count 406 bil/L (150-400)
[2016-07-24 09:01] LABS: Phosphorus 2.5 mg/dL (2.5-4.9)
[2016-07-24] MEDS ORDERED: Acetaminophen IV 1,000 MG in IV Premix 1 EACH IV PRN (09:15)
--- NOTE | 2016-07-24 09:35 | DRSVH ---
PROCEDURE: X-RAY ACUTE ABDOMINAL SERIES ([id number]) INDICATIONS: confusion, abd pain, post op TECHNIQUE: One view chest and two views of the abdomen were acquired. COMPARISON: [facility], CR, XR ABD ACUTE SERIES 3VW, 04/12/2015, 21:13. FINDINGS: Surgical changes and devices: None. Chest: Bibasilar interstitial opacities are present. Heart size is normal. No pleural effusions. N o pneumoperitoneum. Abdomen: Bowel gas pattern is normal. No suspicious calcifications. Visualized solid organ contour s appear normal. Bones: No suspicious bony lesions. IMPRESSION: 1. Bibasilar interstitial opacities suggestive of mild edema versus atypical infection. Correlate cl inically. No source for abdominal pain identified. Dictated by: Eduin VILLARREAL Interpreted: Denia Hair MD on 07/24/2016 at 9:33 Transcribed by: LOY on 07/24/2016 at 9:34 Approved by: Denia Hair M.D. on 07/26/2016 at 16:03
--- NOTE | 2016-07-24 10:29 | PCM.PNSURG ---
Subjective Date of Service: Jul 24, 2016 Date of Service: Jul 24, 2016 Visit Information: Reason for Visit Strangulated Ventral Hernia Surgery/Surgery Date Post-Op Day # Date of Admission: Jul 21, 2016 at 17:20 Hospital Day # Subjective: Patient is seen in surgical follow-up. She is a 66-year-old female who is postop day 2 status post recurrent incarcerated ventral hernia repair with mesh by Dr. Raphael. Her and patient reports she was doing very well yesterday tolerating regular diet, up and ambulating with expected pain. Overnight she had an episode of confusion, nausea and emesis of 100 mL and headache. At this time she denies any significant abdominal pain, she has some mild nausea and a significant headache behind her eyes. She still has a Dilaudid WELDING PANTOGRAPH MACHINE OPERATOR going that she is not using much of. She denies any chest pain or shortness of breath. She is passing flatus but no bowel movement yet. Pain Management: Good Pain Control (except for her headache) Postop Activity: Ambulating Independently Objective Objective Laying in her hospital bed, eyes close secondary to headache, her is at the bedside and understandably concerned. Vital Sign- Last 8 Hours Date Time Temp Pulse Resp B/P Pulse Ox O2 Delivery O2 Flow Rate FiO2 07/24/16 08:09 36.8 99 18 151/72 94 Nasal Cannula 2.00 07/24/16 08:04 18 07/24/16 06:39 20 07/24/16 04:30 36.5 116 18 144/61 95 Nasal Cannula 2.00 07/24/16 04:29 20 95 Intake and Output- Last 8 Hour 07/24/16 Cumulative From/Thru 07:00 07/21/16 12:39 - 07/24/16 06:39 Intake Total 316 ml 9194 ml Output Total 1300 ml 4100 ml Balance -984 ml 5094 ml Intake Oral 200 ml 3500 ml IV Total 116 ml 5694 ml Output Urine Total 1300 ml 3100 ml Urine/Stool Mix 1000 ml # Voids 3 General: Alert, Oriented X3, Cooperative Lungs: Clear to Auscultation, Normal Air Movement Heart: Regular Rate/Rhythm Abdomen: Soft, Appropriately tender (around her periumbilical incision-Telfa/ op site intact, no erythema, induration or drainage noted), Protuberant, Normoactive bowel tones (year) SURGICAL WOUND : Wound General Appearence: No Erythema, No Inflammatory Changes, Wound under dressing, Other (periwound is easily visualized with current dressing) Dressing & Drainage Status: Intact Extremities: Warm, Thigh&Calf Soft/Nontender Neuro: Grossly Neurologically Intact, Normal Speech Catheters: None Result Diagram: 07/24/16 0732 07/24/16 0732 Assessment & Plan Impression 66-year-old female postop day 2 status post recurrent incarcerated ventral hernia repair who is slowly progressing. Problems: Plan 1. D/C WELDING PANTOGRAPH MACHINE OPERATOR 2. Diet-back down from general to clear liquids 3. Pain control-DC WELDING PANTOGRAPH MACHINE OPERATOR, Tylenol IV 4. Leukocytosis-not significantly changed overnight, check CBC in AM 5. Will give heparin DVT prophylaxis Pain Management: d/c motor rebuilder, oxycodone PRN and tylenol IV (because she is nausea at time of visit) VTE Prophylaxis: Sub-Q Heparin (Unfractionated), SCDs Resuscitation Status: CPR: Attempt Resuscitation Mariza Verdin PAC Jul 24, 2016 10:28
[2016-07-24] MEDS: Pantoprazole 20 mg ER24 Tablet PO SCH ×2 (10:57→17:17)
--- NOTE | 2016-07-24 14:30 | PCM.PNMED ---
Subjective Date of Service Jul 24, 2016 Subjective pt was delirious overnight, c/o HANSEN, nausea overnight HARD ROCK DRILL OPERATOR was stopped, ordered tylenol by surgery this AM otherwise, pt tolerate diet, pain is relatively controlled Exam Vital Signs Vital Sign - Last Date Time Temp Pulse Resp B/P Pulse Ox O2 Delivery O2 Flow Rate FiO2 07/24/16 13:05 36.2 92 17 119/66 93 Nasal Cannula 2.00 Intake and Output 07/23/16 07/23/16 07/24/16 Cumulative From/Thru 15:00 23:00 07:00 07/21/16 12:39 - 07/24/16 06:39 Intake Total 2446 ml 316 ml 9194 ml Output Total 1100 ml 1300 ml 4100 ml Balance 1346 ml -984 ml 5094 ml Intake Oral 1400 ml 200 ml 3500 ml IV Total 1046 ml 116 ml 5694 ml Output Urine Total 1100 ml 1300 ml 3100 ml Urine/Stool Mix 1000 ml # Voids 3 Exam NAD, comfortably laying down on the bed no JVD, MMM, no LAD RRR, nl s1, s2 no mrg CTAB, no w,c S,tender fresh scar sterilely dressed, hyperactive BS+ warm, no edema, pulses 2/2 IVs and Medications Medications Reviewed: Medications were reviewed in detail Lab and Diagnostics Result Diagram: 07/24/16 0732 07/24/16 0732 X-Rays, CTs and MRIs PROCEDURE: CT ABDOMEN AND PELVIS WITH CONTRAST IMPRESSION: 1. Fat stranding within surrounding the fat-containing anterior abdominal wall hernia, compatible with the given history of strangulation. 2. Normal appendix. Approved by: Casper Gonzalez M.D. on 07/21/2016 at 16:29 Assessment & Plan acute, acitve #Strangulated ventral hernia, acute, present on admission, Patient has tenderness and erythema at the hernia site. CT abdomen/pelvis as above shows fat stranding of the abdominal wall hernia and pt has leukocytosis. s/p surgery on 07/22 -appreciate surgical management on pain, diet, dvt ppx. -s/p Meropenem IV, no more abx, pt is clinically stable. -Morphine as needed for pain #delirium, HANSEN, POA, likely multifactorial: acute postop, opioid, pain, -tylenol for HANSEN, will consider fioricet if contiues, HARD ROCK DRILL OPERATOR dilaudid stopped -neurochecks q4h, if altered, aggressive reorientation, family at bedside, sitter at bedside, restraints as needed chronic, stable # history of Takotsubo CMP, no pain, euvolemic, #History of hypertension, Continue home medications of lisinopril and carvedilol #Depression, chronic, Continue home medication of citalopram #Gastroesophageal reflux disease, chronic, Continue home medication of omeprazole Other chronic conditions: -Broken heart syndrome - continue enteric-coated aspirin 81 mg daily -Cataracts s/p bilateral eye surgery -S/p partial hysterectomy Code status: Full code dispo: likely 2-3more days based on surgical course Full Code dvt ppx: per surgery team VTE Mechanical Devices: Intermittant Pneumatic CD Resuscitation Status: CPR: Attempt Resuscitation Time spent 35min Robbie Chavez MD Jul 24, 2016 14:19
--- NOTE | 2016-07-24 15:28 | NUR ---
Update P: AMS overnight, continues to c/o headache 02/26 and be intermittently confused. Reports nausea and is requesting medications at this time. I: COOK FAST FOOD Dilaudid stopped at 0700. Surgery team consulted and plan to initiate IV Tylenol for pain and DC COOK FAST FOOD. Diet reduced to clears with snacks allowed. E: Pt tolerating PO intake without emesis and no c/o nausea. Pt is now alert and oriented and remembers a "wild night"; she is drowsy from not sleeping all night but is easily aroused. Pt now denies abdominal pain or a headache.
--- NOTE | 2016-07-24 17:03 | NUR ---
PA called PA called for status of patient. family at bed side. no c/o nausea or vomiting so far this shift. tolerating Po clear fluids. per PA Advance diet to general as tolerated, saline lock IV, orders for SCD's, and PA will put orders for DVT prophylaxis.
[2016-07-24] MEDS: Heparin 5,000 Unit/mL Inj SUBQ SCH (17:26)
--- NOTE | 2016-07-24 18:47 | NUR ---
General diet Tolerating well general diet. no c/o nausea or vomiting at this time. spouse at bed side. per patient last BM this shift.
[2016-07-25] MEDS: Heparin 5,000 Unit/mL Inj SUBQ SCH ×2 (00:51→07:50)
--- NOTE | 2016-07-25 02:29 | NUR ---
Activity/Mentation Patient resting with eyes closed most of shift thus far. A&Ox3, cooperative with care and pleasant while awake. Using call light appropriately/asking for help from staff to use BR when needed. Up to BR with SBA. Gait steady. Marco Antonio alarm in place for safety.
[2016-07-25 05:39] VITALS: BP 136/66; PULSE 89; RESP 18; O2SAT 99
[2016-07-25 06:53] LABS: BASOPHILS % (AUTO) 0.2 % (0-3); EOSINOPHILS % (AUTO) 6.1 % (0-5); MONOCYTES % (AUTO) 8.4 % (4-12); Mean Corpuscular Hemoglobin 24.5 pg (27.0-35.0); Mean Corpuscular Volume 86.1 fL (81-100); NEUTROPHILS % (AUTO) 73.3 % (40-74); Platelet Count 421 bil/L (150-400)
[2016-07-25 07:36] LABS: Phosphorus 3.8 mg/dL (2.5-4.9)
[2016-07-25] MEDS: Pantoprazole 20 mg ER24 Tablet PO SCH (07:51)
--- NOTE | 2016-07-25 12:51 | PCM.DISURG ---
Surgical Discharge Instruction Date of Service Jul 25, 2016 Dates of Hospitalization Date of Hospital Admission Jul 21, 2016 at 17:20 Providers Admitting Physician: Antoni Coello MD Primary Care Physician: Estevan Weeks MD Attending Physician: Antoni Coello MD Discharge Diagnosis Discharge Diagnosis Primary diagnosis: Incarcerated recurrent ventral hernia. Secondary diagnoses: "Broken heart syndrome" Coronary artery disease Gastroesophageal reflux disease Hypertension Obesity BMI 34.8 Depression Urinary tract infection during pregnancies Surgical history: Abdominal hernia with mesh repair Bilateral eye surgery (cataracts) Angioplasty Partial hysterectomy Post Operative diagnosis Same as above Diet Discharge Diet: Other (cardiac) Activity Discharge Activity-General: No lifting >15 pounds for 2 weeks Dressing and Incisional Care Dressing Care: Allow Steri Stripes to fall off Hygiene: September shower Follow Up Plan Follow Up Plan Mariza Acevedo PA-C July 31 Follow-up appointment: Weeks (1 week) Call your provider for: Fever, Chills, Increasing abdominal pain, Discharge @ incision, pus discharge Nichole Rodriguez PA-C Jul 25, 2016 12:51
[2016-07-25 13:16] VITALS: BP 125/64; PULSE 92; RESP 18; O2SAT 92
--- NOTE | 2016-07-25 13:46 | PCM.DC.SUR ---
Discharge Summary Date of Service: Jul 25, 2016 Date of Hospital Admission: Jul 21, 2016 at 17:20 Date of Operation(s): July 22, 2016 Date of Discharge: July 25, 2016 Diagnosis at Time of Discharge Primary diagnosis: Incarcerated recurrent ventral hernia Secondary diagnosis: Broken heart syndrome" Coronary artery disease Gastroesophageal reflux disease Hypertension Obesity BMI 34.8 Depression Urinary tract infection during pregnancies Surgical history: Abdominal hernia with mesh repair Bilateral eye surgery (cataracts) Angioplasty Partial hysterectomy Problems: Operation Open repair of incarcerated recurrent ventral hernia with strangulation. Brief History and Physical: Ms. Megan Wen is a 66 year old female with history of broken heart syndrome , coronary artery disease, hypertension, gastroesophageal reflux disease, depression, and previous hernia repair with mesh who was sent to the emergency department from urgent care for upper abdominal pain. Ten year ago, she had an abdominal hernia repaired with mesh. She has noticed sharp, intermittent abdominal pain with a protrusion where the previous hernia was before for the past 2 weeks. Over the past few days, it has gotten worse and the protrusion has become larger. Prior to the abdominal pain and abdominal protrusion starting , she had an upper respiratory infection with coughing. She noticed the coughing made her pain worse. It also gets worse when she bends forward to pick things up. She tried taking acetaminophen without relief. She also has a headache, nausea, fever for 7 days, and chills. She is still able to pass gas and has had one episode of loose stool. She does not have vomiting, hematemesis , hematochezia, melena, dysuria, and hematuria. For her allergy list, patient reports recently completing an azithromycin pack for her upper respiratory infection without any rashes or complications. In the emergency department, she had a CT abdomen and pelvis with contrast that showed fat stranding within surrounding the fat-containing anterior abdominal wall hernia, compatible with the given history of strangulation and a normal appendix. She also has leukocytosis of 16.2. Surgery was consulted and will see the patient and asked that the patient be started on antibiotics. She has been started on IV meropenem due to her medication allergy list. She is also currently receiving IV normal saline. Consultants: General Surgery: Dr. Ryan Raphael [facility] Course: After undergoing the above procedure the patient was taken to recovery in stable condition. Pt arrived back to her room at approx 1125. Rec'd report from Radha. Pt arrived via gurney and was transferred to the hospital bed via slider board and 4 person assist. IV running NS at 100. Pt sleepy, but arousable , complains of 7/10 pain, no nausea at this time. [place] alarm in place. 3L O2 via NC. Pain controlled with Dilaudid ENVIRONMENTAL SERVICES COORDINATOR. Seen and examined POD # 1 patient stayed for pain control and make sure tolerating diet. That evening patient was argumentative, combative and experienced hallucinations with headache. Also nauseated with small amount of emesis. ENVIRONMENTAL SERVICES COORDINATOR was discontinued. Haldol given for agitation. Zofran and Reglan for nausea. Headache and pain treated with IV Tylenol, no further sequela. Last 36 hours patients pain controlled with Ibuprofen, tolerating general diet, ambulating, +BM. Medically & surgically stable. Ready for discharge to home with Pathology: Pending Disposition: Home Follow-up Plan: ANGELY SaturdayJuly 31 ([Co Q-10]) (Reported) Acetaminophen (Acetaminophen) 325 Mg Tablet 325 MG PO Q4H PRN PRN For Pain ( Reported) Aspirin (Aspirin) 81 Mg Tabec 81 MG PO DAILY Carvedilol (Carvedilol) 6.25 Mg Tablet 6.25 MG PO BID (Reported) Citalopram (Citalopram) 20 Mg Tablet 1 TABLET PO HS (Reported) Cyanocobalamin (Vitamin B12) 500 Mcg Tablet 2,500 MEQ PO DAILY (Reported) Estradiol (Estradiol) 1 Mg Tablet 1 MG PO DAILY (Reported) Lisinopril (Lisinopril) 5 Mg Tablet 5 MG PO BID Omeprazole (Omeprazole) 20 Mg Capsule. 20 MG PO BID (Reported) copies to: Estevan Weeks MD; Antoni Coello MD, Sherri L PA-C Jul 25, 2016 13:46
--- NOTE | 2016-07-25 14:53 | NUR ---
Discharge Pt DC home with via private vehicle. Pain has been well controlled with Tylenol and Motrin and related more to a headache than abdominal pain. Pt will follow up with Mariza Verdin on July 31 and will call to schedule. No prescriptions were given but recommendation for stool softeners was given wiht carenotes. Pt has had 3 BM's in last 24 hours and has been independent in room.
--- NOTE | 2016-07-25 15:12 | PATH ---
SURGICAL PATHOLOGY Attending Physician:Ryan Raphael MD CASE STATUS: Signed Out PATIENT NAME: CATA CAMERON PID: [id number] : 1950 DATE COLLECTED:07/22/2016 00:00 SPECIMEN: Hernia Sac CLINICAL HISTORY: INCARCERATED HERNIA 1). HERNIA SAC WITH CONTENTS FINAL DIAGNOSIS: 1.SPECIMEN DESIGNATED INCARCERATED HERNIA WITH CONTENTS: FIBROFATTY TISSUE INCLUDING APPARENT FASCIA WITH CHRONIC INFLAMMATION AND MULTIPLE SUTURE GRANULOMAS, WELL FOCI OF FAT NECROSIS. NEGATIVE FOR MALIGNANCY AND SIGNIFICANT ATYPIA. ICD10 CODE: K43.2 GROSS DESCRIPTION: The specimen is received in formalin, labeled with the patient's name, sublabeled as hernia sac + contents and consists of multiple pieces of ortiz-yellow rubbery and membranous adipose tissue (11.5 x 9.5 x 4.7 cm in aggregate). The cut surface is lobular, focally fibrous and is otherwise unremarkable. Ink code: green-exterior. Section code: (A-D) adipose tissue, automotive leasing sales representative. 07/24/16 JM MICRO DESCRIPTION: See diagnosis. ICD-9 CODES: CPT CODES: 1: 27109 Electronically Signed Out Tim Bui MD [facility] [address], [place] [address] Technical component performed at [facility], [facility] [address], [place], [address]
== END 2016-07-25 14:55 | disposition home or self-care (01) | DRG 354 ==
LOC: SED 12:21 → OSC 17:20
PROVIDERS: ADMIT Internal Medicine; ATTEND Internal Medicine
PROC: 0WUF0JZ Supplement Abdominal Wall with Synthetic Substitute, Open Approach (ICD-10-PCS; principal; 2016-07-22 08:00)
DX: K43.0 Incisional hernia with obstruction, without gangrene (principal); I51.81 Takotsubo syndrome; Z87.891 Personal history of nicotine dependence; I25.10 Atherosclerotic heart disease of native coronary artery without angina pectoris; I10 Essential (primary) hypertension; F32.9 Major depressive disorder, single episode, unspecified; K21.9 Gastro-esophageal reflux disease without esophagitis; Z79.82 Long term (current) use of aspirin; Z98.61 Coronary angioplasty status; E66.9 Obesity, unspecified; Z68.33 Body mass index [BMI] 33.0-33.9, adult; R51 Headache; R41.0 Disorientation, unspecified; E87.5 Hyperkalemia

== ENCOUNTER 2016-09-27 07:35 | Day surgery (SDC) | payer OTHER ==
[~2016-09-27] VITALS: Ht 157.5 cm; Wt 77.1 kg
[~2016-09-27 07:35] MED LIST changes: -ASCO500C6 PO; -FERR324T2 PO; +Lactated Ringer's 1,000 ML IV ONE
[2016-09-27] MEDS ORDERED: Propofol 10,000 mCg/mL 20 mL Inj ONE (07:36)
[2016-09-27] MEDS ORDERED: Lactated Ringer's 1,000 ML IV SCH (08:17)
--- NOTE | 2016-09-27 08:17 | PCM.HPANE ---
Patient Data Date of Service: September 27, 2016 Surgeon Admitting Provider: Attending Provider:Tarik Rowan MD Primary Care Physician:Estevan Weeks MD Other Provider:Sugar Mercado Anesthesia Reason for Visit Anemia Ht/WT & BMI Body Mass Index Allergies Coded Allergies: Penicillins (Verified Allergy, Mild, 07/21/16) erythromycin ethylsuccinate (Verified Allergy, Mild, OK WITH AZITHROMYCIN , 07/21/16) tetracycline (Verified Allergy, Mild, 07/21/16) aspirin (Verified Allergy, Unknown, 07/21/16) Past Anesthesia History Anesthesia History: Denies:: Anesthesia Reactions Diabetes History Hx Diabetes?: No MRSA MRSA: No Medications Active Scripts Lisinopril 5 Mg Tablet5 Mg PO BID #60 TABLET Prov:Millie Jerome DO 04/21/15 Aspirin 81 Mg Tabec81 Mg PO DAILY #30 Prov:Millie Jerome DO 04/21/15 Reported Medications Carvedilol 6.25 Mg Tablet6.25 Mg PO BID Ref 0 05/22/16 Estradiol 1 Mg Tablet1 Mg PO DAILY Ref 0 04/13/15 Citalopram 20 Mg Tablet1 Tablet PO HS 04/13/15 Omeprazole 20 Mg Capsule.dr20 Mg PO BID Ref 0 04/13/15 Acetaminophen 325 Mg Babrew331 Mg PO Q4H PRN For Pain Ref 0 04/13/15 Cyanocobalamin (Vitamin B12)500 Mcg Tablet2,500 Meq PO DAILY 04/13/15 Discontinued Reported Medications [Co Q-10] No Conflict Check 07/21/16 History History of ENT Problems?: Yes HEENT History: Positive for:: Cataracts (bilat surgeries done) Denies:: Dysphagia Sinus Problem Denture Type: Full- Upper Full- Lower Teeth Condition: Within Normal Limits Hx of Heart Problems?: Yes Cardiovascular History: Positive for:: Cardiac Surgery (angioplasty 2003) Hypertension Denies:: Chest Pain Congestive Heart Failure Edema Heart Murmur Irregular Heartbeat Pacemaker Thrombophlebitis Hx of Respiratory Problem?: Yes Respiratory History: Positive for:: Dyspnea Pneumonia (May 2009) Denies:: Asthma COPD Chest Surgery Emphysema Hemoptysis Tuberculosis Hx Neurologic Problems?: Yes Neurological History: Positive for:: Headaches Seizures (SEIZURES WHEN SHE GOT A HIGH FEVER, 40YRS AGO) Denies:: Alzheimer's Disease CVA Dementia Dizziness Parkinson's Disease Hx of GI Problems?: Yes Hx of Problems?: Yes Genitourinary History: Positive for:: Kidney Stones (Frequent) Urinary Tract Infection Denies:: HX of Hemodialysis HX of Peritoneal Dialysis: No Female Hx: Denies:: Currently Endometriosis Pelvic Inflammatory Problems with Breasts? Hx Musculoskeletal Problems?: No Musculoskeletal History: Denies:: Back Injury Joint Replacement Musculoskeletal Trauma Hx of Psycho/Social Problems?: Yes Psycho Social History: Positive for:: Hx Depression Denies:: Anxiety Bipolar Disorder Suicide Attempt Hx Surgeries?: Yes (HYSTERECTOMY IN 1974, ventral hernia repair 2008) Hx Any Other Health Problems?: No Other History: Positive for:: Hospitalization (pneumonia) Denies:: Cancer Endocrine Disease Thyroid Disease History Blood Transfusions: Positive for:: Blood Transfusions (May 2016) Denies:: Blood Transfuse Reaction Hx Diabetes: No Hx Alcohol Use: Yes (occasional)Hx Substance Use: No Smoking Status: Former Smoker Have You Smoked inLast 12 mo: No Stop/Bang Treated for Sleep Apnea?: No Do You Have a CPAP Machine?: No S-Snoring: Do You Snore Loudly: No T-Tired: feel tired, fatigued: Yes O-Obsered: Observed not breath: No P-Blood Pressure: treated: Yes B- Body Mass Index > 35 kg/m2: No A- Age over 50: Yes N- Neck Large Circumference: No G- Gender Male: No MARIO Risk Assessment: Low Risk, <3 Yes Risk Assessment Category Category 1A: Patient has history of documented sleep apnea, and HAS NOT received any narcotic, sedative or anesthesia administration during this stay. Category 1B: Patient has history of documented sleep apnea, and HAS received any narcotic , sedative or anesthesia administration during this stay Category 2: Patient has SUSPECTED Obstructive Sleep Apnea, and HAS received any narcotic , sedative or anesthesia administration during this stay. Category 3: Patient has SUSPECTED Obstructive Sleep Apnea and HAS NOT received narcotic, sedative or anesthesia administration during this stay. Category 4: Outpatient in Procedural Areas with known sleep apnea or who screen positive for High Risk via the STOP/BANG questionnaire. Exam Exam General Appearance: Alert, Oriented X3 HEENT/AIRWAY: MP 2 Lungs: Clear to Auscultation Heart: Exam Unremarkable Plan Impression Patient chart reviewed, patient interviewed and anesthestic plan with risks, benefits, and alternatives discussed, and informed consent obtained. NPO per Anesth. Guidelines: Yes ASA Physical Status: ASA2 Mod Systemic Disease Anesthetic Plan: MAC Bene/Risks/Altern/Consents: Yes HP Complete Prior to Induction: Yes James Roa MD September 27, 2016 08:17
[2016-09-27] MEDS ORDERED: MetoCLOpramide 5 mg/mL 2 mL Inj IVPUSH PRN (08:20)
[2016-09-27] MEDS ORDERED: Ondansetron 2 mg/mL 2 mL Inj IVPUSH PRN (08:20)
[2016-09-27 08:27] VITALS: BP 108/51; PULSE 80; RESP 17; O2SAT 97
--- NOTE | 2016-09-27 08:50 | PCM.ENDEGD ---
EGD Date of Service: September 27, 2016 Physician Tarik Rowan MD Pre Procedure Diagnosis: Anemia Post Procedure Dx & Findings: Gastritis fundic polyps Procedure Esophagogastroduodenoscopy PROCEDURE IN DETAIL: After proper sedation, Olympus video endoscope was inserted into patient's mouth and esophagus was successfully intubated. Scope introduced esophagus. Esophagus showed normal shiny whitish mucosa consistent with squamous cell component. Z line was intact at 38 cm from the incisors. Scope further advanced events to the stomach. Stomach showed normal shiny mucosa with normal appearing rugae folds without any ulcer mass erosion. However in the antrum and to some extent into the body, some atrophic mucosa noted as well as prominent fold in the prepylorus. Biopsy obtained of the fold and gastritis. Cardia fundus body antrum pylorus were all visualized. Retroflexion was done. Several small fundic polyps noted. These were not more than 3-4 mm in size. Sampling biopsies obtained. Stomach was easily inflated and deflatable using air. Scope further events to the distal duodenum. Duodenum revealed normal villous structures with normal appearing folds without any mass ulcer erosion. 5 biopsies in the duodenum obtained for rule out celiac. Impression Gastritis Fundic polyps No cause of anemia Recommendation Await biopsies Presedation Assessment Risks and Benefits Informed consent was obtained from the patient after all risks and benefits including but not limited to drug reaction, infection, pain, bleeding, perforation, as well as alternatives were discussed. Patient monitoring Continuous pulse oximetry, cardiac monitoring, blood pressure monitoring, IV access, and oxygen at 2L per nasal cannula. Complications There were no periprocedural complications identified. Post Procedure Plan Post Procedure Recommendations 1. Restrict activities today. 2. Resume normal activities in the morning. 3. Resume medications. 4. GERD behavioral modification: - Avoid fatty, acidic, spicy, large meals - Do not lie down after meals - Do not eat or drink anything for at least 2 1/2 hours before going to bed at night - Discontinue tobacco and alcohol - Decrease or avoid caffeine - Avoid chocolate and mints - Decrease weight - Avoid aspirin and non steroidal anti-inflammatory agents (NSAID) such as Aleve, Advil, Mobic, Naproxen, Ibuprofen, etc 5. Add proton pump inhibitor. Take 30 minutes before 1st meal of the day. 6. Patient informed of normal post procedure side effects as bloating, drowsiness, blood streaking in the stool 7. If gastric biopsy reveal H.pylori, continue with appropriate treatment 8. If small bowel biopsy reveals celiac, continue with appropriate treatment 9. Please don't hesitate to call me with any questions Tarik Rowan MD September 27, 2016 08:50
--- NOTE | 2016-09-27 09:18 | PCM.ENDCOL ---
Colonoscopy Date of Service: September 27, 2016 Physician Tarik Rowan MD Pre Procedure Diagnosis: Anemia Post Procedure Dx & Findings: AVM polyp hemorrhoids diverticuli Procedure Colonoscopy PROCEDURE IN DETAIL: Prep adequate Withdrawal time 19 minutes After unremarkable rectal examination the Olympus video colonoscope was inserted patient's anal canal and was advanced to cecum. Landmarks were identified including the ileocecal valve and appendiceal orifice. Scope further events to the terminal ileum. We advanced 10 cm. Normal villous structures without any ulcer mass or lesion noted. Scope was withdrawn systematically. Visualized colonic mucosa showed healthy shiny mucosa with normal healthy-appearing vasculature. Multiple AVMs noted. Most on the right side. Just one was about up to 1.5 cm in size. There are several AVMs in the cecum and it extended to the ascending colon. Then the number of AVMs decreased in the transverse colon and we saw isolated AVMs in the descending colon. None of the AVMs were bleeding. In the sigmoid colon small diverticuli noted. In the rectum, there was a 3 mm polyp which was removed completely using cold snare. There was also a 1 mm polyp which was removed completely using cold forceps. In the rectum retroflexion was done which showed hemorrhoids. Anal canal was inspected carefully on the way out and hemorrhoids noted. Impression AVMs probably the cause of the anemia. Patient may also have small bowel AVMs as well. Hemorrhoids Diverticuli Polyps Recommendation Repeat colonoscopy in 5 years Diverticular diet Risk benefit of continuing the aspirin needs to be assessed. I deferred this to the radiologist and the primary care doctor. Recommend iron supplements iron 325 mg 1 tablet 3 times a day. Follow up in GI clinic with Alisa Awan. If hemoglobin continues to go down despite the high dose iron, would like to do CT enterography and capsule to see if there is any further AVMs in the small intestines. There is no large AVM in the small intestines, then we may have to repeat the colonoscopy for cauterization of the largest AVMs. Presedation Assessment Risks and Benefits Informed consent was obtained from the patient after all risks and benefits including but not limited to drug reaction, infection, pain, bleeding, perforation, as well as alternatives were discussed. Patient monitoring Continuous pulse oximetry, cardiac monitoring, blood pressure monitoring, IV access, and oxygen at 2L per nasal cannula. Complications There were no periprocedural complications identified. Post Procedure Plan Post Procedure Recommendations 1. Restrict activities today. 2. Resume normal activities in the morning. 3. Resume medications. 4. Patient informed of normal post procedure side effects as bloating, drowsiness, blood streaking in the stool. 5. average risk CRCS. If colon polyps come back as: -Hyperplastic- can repeat colonoscopy in 10 years -Tubular adenoma- repeat colonoscopy in 5 years -Tubulovillous/villous adenoma- repeat colonoscopy in 3 years -If any dysplasia- return to clinic as soon as possible 6. Please don't hesitate to call me with any questions. Tarik Rowan MD September 27, 2016 09:18
[2016-09-27 09:21] VITALS: BP 129/63; PULSE 80; RESP 16; O2SAT 94
[2016-09-27 09:31] VITALS: BP 131/68; PULSE 76; RESP 16; O2SAT 93
[2016-09-27 09:41] VITALS: BP 116/71; PULSE 82; RESP 16; O2SAT 94
--- NOTE | 2016-09-27 10:52 | PCM.ANEP1 ---
Post Anesthesia Phase 1 PACU Phase 1 Assessment Date of Service: September 27, 2016 Vital Signs Vital Signs Date Time Temp Pulse Resp B/P Pulse Ox O2 Delivery O2 Flow Rate FiO2 09/27/16 09:41 82 16 116/71 94 Room Air 09/27/16 09:31 76 16 131/68 93 Room Air 09/27/16 09:21 36.1 80 16 129/63 94 Room Air 09/27/16 08:27 36.8 80 17 108/51 97 Room Air Anesthetic Administered: MAC Level of Alertness: Awake, talking Pain: No Nausea or Vomiting: No Cardiovascular Function and Hy: Yes Lungs: Clear to Auscultation Complications: No Follow up Care: No James Roa MD September 27, 2016 10:52
--- NOTE | 2016-09-28 11:06 | PATH ---
SURGICAL PATHOLOGY Attending Physician:Tarik Rowan M.D. CASE STATUS: Signed Out PATIENT NAME: CATA CAMERON PID: [id number] : 1950 DATE COLLECTED:09/27/2016 17:48 SPECIMEN: 1: Duodenum, Biopsy 2: Gastric, Biopsy 3: Stomach, Biopsy 4: Rectum, Biopsy CLINICAL HISTORY: 1). RANDOM DUODENAL BIOPSY 2). GASTRIC BIOPSY 3). FUNDAL BIOPSY 4). RECTAL POLYPS FINAL DIAGNOSIS: 1.RANDOM DUODENAL BIOPSIES: FRAGMENTS OF NORMAL-APPEARING DUODENAL MUCOSA. Normal delicate mucosal villi present. Negative for significant inflammation, dysplasia and malignancy. 2.GASTRIC BIOPSIES: MILD CHRONIC GASTRITIS INVOLVING ANTRAL AND FUNDIC MUCOSA. Negative for evidence of Helicobacter. Negative for intestinal metaplasia. Negative for dysplasia and malignancy. 3.FUNDAL BIOPSY: BENIGN FUNDIC GLAND POLYP, NEGATIVE FOR ATYPIA. Negative for evidence of Helicobacter. Negative for intestinal metaplasia. Negative for dysplasia and malignancy. 4.RECTAL POLYPS: HYPERPLASTIC POLYPS INVOLVING ALL THREE BIOPSY FRAGMENTS. ICD10 CODE K31.7 GROSS DESCRIPTION: The specimen is received in four formalin filled containers labeled with the patient's name. 1). The specimen is sublabeled "duodenal" and consists of 2 portions of tissue which aggregate to 0.3 x 0.3 x 0.2 CM. The specimen is entirely submitted in cassette 1A. 2). The specimen is sublabeled "gastric" and consists of 2 portions of tissue which aggregate to 0.3 x 0.3 x 0.2 CM. The specimen is entirely submitted in cassette 2A. 3). The specimen is sublabeled "fundal" and consists of 2 portions of tissue which aggregate to 0.3 x 0.2 x 0.2 CM. The specimen is entirely submitted in cassettes 3A. 4). The specimen is sublabeled "rectal polyps" and consists of 3 portions of tissue which aggregate to 0.3 x 0.3 x 0.2 CM. The specimen is entirely submitted in cassette 4A. 09/27/2016 [facility] MICRO DESCRIPTION: See diagnosis. ICD-9 CODES: CPT CODES: 1: 49646 2: 06335 3: 14326 4: 81695 Electronically Signed Out Tim Bui MD [facility] [address] [place] [address], [place] [address] Technical component performed at [facility], [address], [place], [address]
== END 2016-09-27 23:59 | disposition home or self-care (01) ==
LOC: END 07:35
PROVIDERS: ATTEND Internal Medicine
DX: Q27.33 Arteriovenous malformation of digestive system vessel (principal); K62.1 Rectal polyp; K57.30 Diverticulosis of large intestine without perforation or abscess without bleeding; K64.9 Unspecified hemorrhoids; K31.7 Polyp of stomach and duodenum; K29.50 Unspecified chronic gastritis without bleeding; D64.9 Anemia, unspecified; I10 Essential (primary) hypertension; F41.9 Anxiety disorder, unspecified; F32.9 Major depressive disorder, single episode, unspecified; E78.5 Hyperlipidemia, unspecified; I51.81 Takotsubo syndrome; E11.9 Type 2 diabetes mellitus without complications; K21.9 Gastro-esophageal reflux disease without esophagitis; Z87.891 Personal history of nicotine dependence; Z79.82 Long term (current) use of aspirin; Z79.890 Hormone replacement therapy; Z87.442 Personal history of urinary calculi; Z90.710 Acquired absence of both cervix and uterus
CPT/HCPCS: 43239; 45380; 45385; J7120